=== PATIENT | female | born 1960 | race Caucasian/White ===

== ENCOUNTER → 2018-05-08 09:00 | Outpatient (CLI) | payer OTHER, SELFPAY | DX: Z23 Encounter for immunization (principal) | CPT/HCPCS: 90471; 90686 ==

== ENCOUNTER 2018-06-04 23:05 | Emergency (ER) | payer OTHER, SELFPAY ==
[2018-06-04 23:14] VITALS: BP 123/64; PULSE 70; RESP 18; TEMP 36.1; O2SAT 97; BMI 19.8
--- NOTE | 2018-06-04 23:30 | ED.LOWEXIN ---
HPI - Extremity Injury (Lower) General Chief Complaint: Extremity Injury, Lower Stated Complaint: thinks she broke her left ankle Time Seen by Provider: 06/04/18 23:25 Source: patient Mode of arrival: ambulatory Limitations: no limitations History of Present Illness HPI Narrative: Patient states she was walking on the steps when she stepped down wrong and rolled her left ankle. She states she felt a snap in the lateral portion of the ankle, and she has had increasing pain in the hours since this happened. Patient denies any other injuries at this time. She denies any prior injury to the ankle itself. She states she is otherwise healthy. No head injury. Patient states pain is 7/10. Related Data Previous Rx's Medication Instructions Recorded hydrocodone-acetaminophen 1 tab PO Q6H PRN #20 tab 06/05/18 Allergies Allergy/AdvReac Type Severity Reaction Status Date / Time No Known Drug Allergies Allergy Verified 06/04/18 23:19 Review of Systems Review of Systems All systems reviewed & are unremarkable except as noted in HPI and below Constitutional Denies chills, Denies fever(s), Denies lethargy and Denies weakness Eyes Denies change in vision, Denies eye discharge, Denies irritation and Denies loss of vision ENT Ears, Nose, Mouth, and Throat: Denies change in voice, Denies neck pain and Denies sore throat Cardiovascular Denies chest pain, Denies irregular heart rhythm, Denies lightheadedness, Denies palpitations, Denies dyspnea, Denies dyspnea on exertion and Denies orthopnea Respiratory Denies cough, Denies dyspnea, Denies dyspnea on exertion and Denies wheezing Gastrointestinal Gastrointestinal: Denies abdominal pain, Denies change in bowel habits, Denies diarrhea, Denies nausea and Denies vomiting Genitourinary Denies hematuria, Denies flank pain, Denies urinary incontinence and Denies urinary urgency Musculoskeletal Denies neck pain Comments: Left ankle pain Integumentary/Breasts Denies pruritus, Denies erythema, Denies rash and Denies wounds Neurologic Denies confusion, Denies loss of vision and Denies weakness Psychiatric Denies anxiety, Denies confusion, Denies depression, Denies homicidal ideation and Denies suicidal ideation Endocrine Denies palpitations Hematologic/Lymphatic Denies easy bruising Allergic/Immunologic Denies wheezing [facility] History History of third molar tooth extraction History of tonsillectomy Status post cholecystectomy Social History Smoking Status: Never smoker Exam Initial Vital Signs Initial Vital Signs: Vital Signs Temperature 97.0 F L 06/04/18 23:14 Pulse Rate 70 06/04/18 23:14 Respiratory Rate 18 06/04/18 23:14 Blood Pressure 123/64 06/04/18 23:14 Pulse Oximetry 97 06/04/18 23:14 Const General: cooperative and well developed Nutritional Appearance: well nourished Orientation: alert, awake, oriented x3 and not confused HENMT Head: normocephalic and atraumatic Ears: external ears normal and TM's normal bilaterally Nose: external nose normal and No nasal discharge Face and sinus: sinuses nontender, face symmetric, no sinus tenderness and No dry mucous membranes Mouth: oral mucosae normal and moist mucous membranes Teeth and gingiva: dentition normal Throat: tonsils normal and uvula midline Eyes General: appearance normal, both eyes and all related structures Eyelids: eyelids normal Conjunctivae: conjunctivae normal Sclera: sclerae normal Pupils: PERRL EOM: EOM intact bilaterally Neck Neck: normal visual inspection, trachea midline, No lymphadenopathy, No midline deformity and No JVD Lymphatic: No lymphedema Chest Chest: normal inspection of the chest Resp Effort & Inspection: normal respiratory effort, able to speak in complete sentences, no respiratory distress and no use of accessory muscles Cardio Pulses: normal peripheral pulses Back/Spine/Pelvis Back: No CVA tenderness Cervical Spine: cervical ROM normal and No pain with cervical ROM Thoracic/Lumbar Spine: thoracic and lumbar spine normal to inspection Skin General: no rashes or lesions noted, No jaundice and No petechiae Neuro General: alert, oriented x3, gait normal and no focal motor deficits Speech: speech normal Extrem General: full ROM, no pedal edema and no calf tenderness Left lower extremity: ankle ( patient has mild edema over her left lateral malleolus, as well as moderate tenderness over the distal left fibula and the soft tissues just inferior and anterior to the fibula.) Psych Appearance: well kempt Mental Status: mental status grossly normal Attitude: cooperative Thought Content: normal and suicidality Judgment: judgment good Course Course Narrative: Patient was sent for an x-ray series of her left ankle, which did show a small avulsion of the distal tip of the left fibula. I did relay the findings to the patient and advised patient that I would have her be nonweightbearing and using a splint until followed up by Orthopedics. Orders Ordered: ED Orders 06/04/18 23:35 XR ankle LT min 3V Stat Discontinued Medications Hydrocodone Bitart/Acetaminophen (Vicodin Prepack) 1 bottle MISC SEEINSTR ONE Stop: 06/05/18 00:18 Last Admin: 06/05/18 01:04 Dose: 1 bottle Vital Signs - 8 hr 06/04/18 23:14 06/05/18 01:18 Temperature 97.0 F L Pulse Rate 70 93 H Respiratory Rate 18 16 Blood Pressure 123/64 149/78 H Pulse Oximetry 97 97 MDM - Extremity Injury (Lower) Medical Records Attestation: I reviewed the patient's medical records. Imaging Data left ankle x-ray series: Attestation: I personally reviewed and interpreted this imaging study as follows: My impression: distal fibular avulsion fracture Radiologist's impression: Pending at the time this documentation. Discharge Plan Departure Patient Disposition: Home Clinical Impression: Ankle fracture Discharge Date/Time: 06/05/18 01:19 Interventions: ED Discharge Assessment Last Done: 06/05/18 01:18 Instructions: DI for Ankle Fracture Activity Restrictions/Additional Instructions: Your x-ray shows that the very bottom tip your fibula, the small outside bone of your lower leg, has broken off. The bone is in relatively good placement, and should heal without difficulty. However, since you do have a break, you will be referred to Orthopedics for follow-up, to be sure that the ankle is healing appropriately. Please keep the splint on and do not bear weight on the leg, and till you are cleared by Orthopedics. Prescriptions: New hydrocodone-acetaminophen 5-325 mg tablet 1 tab PO Q6H PRN (Reason: pain) Qty: 20 RF: 0 Referrals: Allen Medel MD [Physician] -
--- NOTE | 2018-06-04 23:35 | DI.RAD.S_ITS ---
PROCEDURE: XR ANKLE LT MIN 3V INDICATIONS: injury/pain left ankle TECHNIQUE: 3 views of the ankle were acquired. COMPARISON: None. FINDINGS: Bones: Mildly displaced fracture of the lateral malleolus is noted. Soft tissues: No tibiotalar joint effusion. Achilles tendon appears normal. IMPRESSION: Lateral malleolus fracture. Dictated by: Radhika Mejia MD, PhD on 06/05/2018 at 8:26 Approved by: Radhika Mejia MD, PhD on 06/05/2018 at 8:26
[2018-06-05] MEDS: HYDROCODONE/ACET 5/325 PREPACK 1 BOTTLE MISC (01:04)
[2018-06-05 01:18] VITALS: BP 149/78; PULSE 93; RESP 16; O2SAT 97
== END 2018-06-05 01:19 | disposition home or self-care (01) ==
PROVIDERS: Emergency Provider Emergency Medicine
DX: S82.892A Other fracture of left lower leg, initial encounter for closed fracture (principal); W18.43XA Slipping, tripping and stumbling without falling due to stepping from one level to another, initial encounter
CPT/HCPCS: 29515; 73610; 99283

== ENCOUNTER → 2018-07-25 08:30 | Outpatient (CLI) | payer OTHER, SELFPAY ==
[2018-07-25 10:14] LABS: Alanine Aminotransferase 51 IU/L (9-52); Albumin 4.8 g/dL (3.5-5.0); Albumin Globulin Ratio 1.7 (1.0-2.8); Alkaline Phosphatase 66 U/L (38-126); Aspartate Aminotransferase 39 IU/L (14-36); Bilirubin Total 1.7 mg/dL (0.2-1.3); Blood Urea Nitrogen 12 mg/dL (7-17); Calcium 10.3 mg/dL (8.4-10.2); Carbon Dioxide 31 mmol/L (22-32); Chloride 100 mmol/L (98-107); Estimated Glomerular Filt Rate > 60.0 mL/min (>60); Gamma Glutamyl Transpeptidase 35 U/L (12-43); Globulin 2.8 g/dL (1.7-4.1); Glucose 97 mg/dL (70-100); HEMOLYSIS < 15 (0-50); Potassium 4.2 mmol/L (3.4-5.1); Sodium 141 mmol/L (137-145); Total Protein 7.6 g/dL (6.3-8.2)
== END ==
PROVIDERS: Family Provider Family Medicine; PCP Family Medicine; Visit Provider Internal Medicine Gastroenterology
DX: R94.5 Abnormal results of liver function studies (principal)
CPT/HCPCS: 36415; 80053; 82977

== ENCOUNTER 2018-09-15 09:00 | Outpatient (RCR) | payer OTHER, SELFPAY ==
--- NOTE | 2018-08-02 15:16 | PT.OIE ---
Current Diagnoses Nondisplaced fracture of lateral malleolus of left fibula, subsequent encounter for closed fracture with routine healing (08/01/18) Past Surgical History (Last Reviewed 06/05/18 @ 06:01 by Besise Thrasher MD) History of third molar tooth extraction History of tonsillectomy Status post cholecystectomy Provider Visit Care Team Role Provider Type Alsya Olmedo DO Family Provider Physician Primary Care Provider Specialty: Family Practice Address: [address] [place] [address], [id number] Email: [email or web address] Attending Provider Physician Specialty: Orthopedic Surgery Address: [address] [place] [address], [phone] Fax: Email: Physical Therapy Initial Evaluation PT-OP-A Visit Information Start: 08/02/18 14:33 Freq: Status: Active Protocol: Document 08/01/18 09:35 [facility] (Rec: 08/02/18 15:15 [facility] [id number]) Out-Patient Physical Therapy Visit Information Visit Information Visit Type Initial Evaluation Visit Note 57 year old female who fractured her distal fibula on Jun 04 when she missed the last step going down a set of stairs. She is referred to PT to progress ankle ROM and strength Visit Start Time 09:45 Visit Stop Time 10:40 Total Visit Minutes 45 Visit Number 1 Evaluation Information Evaluation Date 08/01/18 PT-OP-B Current Condition Start: 08/02/18 14:33 Freq: Status: Active Protocol: Document 08/01/18 09:35 [facility] (Rec: 08/02/18 15:15 [facility] [id number]) Current Condition History of Current Condition Onset Date Jun 04 Current Complaints discomfort and swelling of the left ankle, not knowing what exercises to do History of Current Condition 57 year old female who fractured her distal fibula when she missed the last step going down a set of stairs on June 04. She was evaluated and placed in a walking boot until her last doctors visit on 07/03/18. At that time she was given a lace up ankle brace to wear for lateral stability. She has been doing ROM exercises since her last Dr. Visit and she notes this has helped. She is not sure what all she should be doing and seeks guidance to return to her normal level of activity. Nivia is a avid hiker and she would like to return to hiking when able. She does have a doctors appointment again this week and a additional x-ray will be taken at that time. Treatment Goals Patient/Caregiver Goals to return to hiking and walking Prior Functional Status Baseline Function- ADL's Independent Baseline Function- Mobility Independent PT-OP-C Subjective Start: 08/02/18 14:33 Freq: Status: Active Protocol: Document 08/01/18 09:35 [facility] (Rec: 08/02/18 15:15 [facility] [id number]) OP-PT Pain Assessment Pain Assessment Grid Paper Pain Assessment Grid Completed Yes Location left lateral ankle Intensity 4 Scale Used Numeric (1 - 10) Description Tender Tightness Frequency Daily Comments Pain Comments Nivia describes not having pain so much but instead a discomfort and swelling compared to her right side PT-OP-F Manual Assessment Start: 08/02/18 14:33 Freq: Status: Active Protocol: Document 08/01/18 09:35 [facility] (Rec: 08/02/18 15:15 [facility] [id number]) Manual Assessments Soft Tissue Assessment Soft Tissue Mobility Assessment tightness in the posterior calf musculature , plantar fascia tightness on the left Joint Mobility Assessment Joint Mobility Assessment decreased ankle joint ROM into DF, PF, Inversion, and eversion as compared to the right, decreased great toe extension on the left as compared to the right PT-OP-G Mobility & Gait Start: 08/02/18 14:33 Freq: Status: Active Protocol: Document 08/01/18 09:35 [facility] (Rec: 08/02/18 15:15 [facility] [id number]) OP Gait Assessment Gait Gait Assistance Required: Independent Gait Deviations General Gait Pattern Antalgic Decreased Stride Length Factors Limiting Gait Function Factors Limiting Gait Function Decreased Strength Pain Stair Climbing Evaluation Technique/Endurance Stair Climbing Direction Descend Stair Climbing Technique Step to Step PT-OP-J Posture/Palpation/Skin Start: 08/02/18 14:33 Freq: Status: Active Protocol: Document 08/01/18 09:35 [facility] (Rec: 08/02/18 15:15 [facility] [id number]) Palpation Assessment Location Two Palpation Location plantar fascia Palpation Findings Soft Tissue Tightness left lateral malleolus Palpation Location left lateral malleolus Palpation Findings Edema Tenderness Palpation Details tenderness to palpation over the left malleulus Skin Assessment Other Assessments Skin Assessment Comments decreased sensation over the left great toe as compared to the right. Nivia does note that initially she was keepingher walking boot really tight and at that time she noted some numbness in her left great toe. PT-OP-K Range of Motion Start: 08/02/18 14:33 Freq: Status: Active Protocol: Document 08/01/18 09:35 [facility] (Rec: 08/02/18 15:15 [facility] [id number]) Ankle and Foot Goniometric Range of Motion Ankle and Foot Measured in Degrees Right Ankle/Foot ROM WFL Yes Dorsiflexion with Knee Extended 10 Plantarflexion 35 Inversion 40 Eversion 15 Left Ankle/Foot ROM WFL No Testing Position Supine Dorsiflexion with Knee Extended 5 Plantarflexion 25 Inversion 20 Eversion 5 Ankle and Foot ROM Limitations ROM Limitations Pain Comments Nivia has a very large amount of inversion normally so even though her ROM looks like a good amount of inversion she is limited as compared to the left side PT-OP-M Strength Start: 08/02/18 14:33 Freq: Status: Active Protocol: Document 08/01/18 09:35 [facility] (Rec: 08/02/18 15:15 [facility] [id number]) Ankle/Foot Strength Ankle and Foot Manual Muscle Testing Left Dorsiflexion (L4) 3- Fair- Plantarflexion (S1) 2+ Poor+ Inversion 3 Fair Eversion (S1) 2+ Poor+ Reason Not Measured Pain PT-OP-Q Treatments Start: 08/02/18 14:33 Freq: Status: Active Protocol: Document 08/01/18 09:35 [facility] (Rec: 08/02/18 15:15 [facility] [id number]) Therapeutic Exercises Supine Exercises 2 Supine Exercise Name long sitting calf stretch Side left [address] Name [address] ankle with theraband Side left Resistance level 1 theraband Reps/Minutes 10 reps (pt given HEP to work up to 3 srts of 10 reps) Manual Therapy Treatment Soft Tissue Mobilization 1 Body Location left foot and ankle Mobilization Type Strumming Intensity/Depth Superficial Body Position Supine Comments gentle STM over the lateral ankle and the plantar fascia with ROM of the toes and gentle stretching PT-OP-R Modalities Start: 08/02/18 14:33 Freq: Status: Active Protocol: Document 08/01/18 09:35 [facility] (Rec: 08/02/18 15:15 [facility] [id number]) Hot Pack/Cold Pack Treatment Cold Pack Patient Position Hooklying Treatment Duration (minutes) 10 Patient Tolerance Good Comments cyrocuff with ankle elevated Other Unlisted Modality Treatment left lateral ankle Name of Modality laser tx Body Position Sitting Comments for chronic joint/bone increase local circulation setting PT-OP-T Assessment and Plan Start: 08/02/18 14:33 Freq: Status: Active Protocol: Document 08/01/18 09:35 [facility] (Rec: 08/02/18 15:15 [facility] [id number]) Physical Therapy Assessment Rehab Potential Rehabilitation Potential Excellent Evaluation Complexity Number of Personal Factors/Comorbidities 0 Number of Body Systems Impaired 1-2 Clinical Presentation at Evaluation Stable Impairments Impairments Activity Tolerance Balance Edema Gait Pain ROM Soft Tissue Mobility Strength Goals Five Impairment difficulty descending stairs, using step to step pattern Short Term Goal (STG) Nivia is able to descend stairs with a step over step pattern and without complaints of pain Four Impairment decreased balance left LE Short Term Goal (STG) improve weightbearing and balance of the left LE and Nivia is able to stand SLS for 10 seconds or greater on the left LE Three Impairment decreased weightbearing left LE with antalgic gait pattern Short Term Goal (STG) improve gait pattern for full weightbearing of the left LE without a visable limp and slowly progressing off the lateral ankle brace STG Duration 6 weeks One Impairment decreased left ankle strength Short Term Goal (STG) Nivia is instructed in a HEP for improving strength in the left ankle and she is tolerating strengthening without pain STG Duration 6 weeks Two Impairment Decreased left ankle ROM as compared to the right ankle Short Term Goal (STG) Improve left ankle ROM to WNL without pain STG Duration 6 weeks Assessment Summary Assessment Nivia presents to physical therapy today [facility] 2 months s/p left distal fibula fracture. She has progressed from the walking boot to the lace up ankle brace. She has started doing ankle ROM exercises since her last visit and this has helped but she is in need of further guidance as to her strengthening program. She has tenderness to palpation over the lateral malleolus and lacks ROM as compared with her right ankle. Her greatest difficulty is with ankle eversion. SHe is tight in her posterior calf and plantar fascia as compared to the right. She has decreased strength and ankle stability and will benefit from a gradual strengthening program as well as gait training and balance training. I did hold off on weightbearing assessment as she is head in for a x-ray to look at healing and we will wait for these results. Nivia may benefit from our aquatic therapy program as well to progress her weightbearing and gait. She tolerated todays treatment well and is a good candidate for PT. Physical Therapy Plan Frequency and Duration Frequency of Treatment 2x/Week Duration of Treatment 6 weeks Plan of Care Start Date 08/01/18 Plan of Care End Date 09/12/18 Therapeutic Interventions Therapeutic Interventions Aquatic Therapy Balance Training Gait Training Home Exercise Program Manual Therapy Self-Care/Home Management Soft Tissue Mobilization Taping Therapeutic Exercises Modalities Cold Pack/Ice Massage Electric Stimulation Next Visit Focus/Plan Next Note Type Treatment Note Next Visit Plan reassess ankle strengthening and calf stretch and progress ther ex and ROM as tolerated
--- NOTE | 2018-08-04 11:15 | PT.OTN ---
Current Diagnoses Nondisplaced fracture of lateral malleolus of left fibula, subsequent encounter for closed fracture with routine healing (08/04/18) Physical Therapy Treatment Note PT-OP-A Visit Information Start: 08/02/18 14:33 Freq: Status: Active Protocol: Document 08/04/18 10:30 DC[facility] (Rec: 08/04/18 11:14 DCW [id number]) Out-Patient Physical Therapy Visit Information Visit Information Visit Type Treatment Note Visit Start Time 10:30 Visit Stop Time 11:25 Total Visit Minutes 55 Visit Number 2 Evaluation Information Evaluation Date 08/01/18 PT-OP-B Current Condition Start: 08/02/18 14:33 Freq: Status: Active Protocol: Document 08/01/18 09:35 [facility] (Rec: 08/02/18 15:15 [facility] [id number]) Current Condition History of Current Condition Onset Date Jun 04 Current Complaints discomfort and swelling of the left ankle, not knowing what exercises to do History of Current Condition 57 year old female who fractured her distal fibula when she missed the last step going down a set of stairs on June 04. She was evaluated and placed in a walking boot until her last doctors visit on 07/03/18. At that time she was given a lace up ankle brace to wear for lateral stability. She has been doing ROM exercises since her last DrOlvin Visit and she notes this has helped. She is not sure what all she should be doing and seeks guidance to return to her normal level of activity. Nivia is a avid hiker and she would like to return to hiking when able. She does have a doctors appointment again this week and a additional x-ray will be taken at that time. Treatment Goals Patient/Caregiver Goals to return to hiking and walking Prior Functional Status Baseline Function- ADL's Independent Baseline Function- Mobility Independent PT-OP-C Subjective Start: 08/02/18 14:33 Freq: Status: Active Protocol: Document 08/04/18 10:30 DCW (Rec: 08/04/18 11:14 DCW [id number]) OP-PT Subjective Patient Comments Patient Comments Pt reports that at her follow- up appointment Tuesday, she was released from care at [facility], and reports she was told her Fx is healing well, but mmay never truly fully heal due to the location of the fracture. PT-OP-F Manual Assessment Start: 08/02/18 14:33 Freq: Status: Active Protocol: Document 08/01/18 09:35 [facility] (Rec: 08/02/18 15:15 [facility] [id number]) Manual Assessments Soft Tissue Assessment Soft Tissue Mobility Assessment tightness in the posterior calf musculature , plantar fascia tightness on the left Joint Mobility Assessment Joint Mobility Assessment decreased ankle joint ROM into DF, PF, Inversion, and eversion as compared to the right, decreased great toe extension on the left as compared to the right PT-OP-G Mobility & Gait Start: 08/02/18 14:33 Freq: Status: Active Protocol: Document 08/01/18 09:35 [facility] (Rec: 08/02/18 15:15 [facility] [id number]) OP Gait Assessment Gait Gait Assistance Required: Independent Gait Deviations General Gait Pattern Antalgic Decreased Stride Length Factors Limiting Gait Function Factors Limiting Gait Function Decreased Strength Pain Stair Climbing Evaluation Technique/Endurance Stair Climbing Direction Descend Stair Climbing Technique Step to Step PT-OP-J Posture/Palpation/Skin Start: 08/02/18 14:33 Freq: Status: Active Protocol: Document 08/01/18 09:35 [facility] (Rec: 08/02/18 15:15 [facility] [id number]) Palpation Assessment Location Two Palpation Location plantar fascia Palpation Findings Soft Tissue Tightness left lateral malleolus Palpation Location left lateral malleolus Palpation Findings Edema Tenderness Palpation Details tenderness to palpation over the left malleulus Skin Assessment Other Assessments Skin Assessment Comments decreased sensation over the left great toe as compared to the right. Nivia does note that initially she was keepingher walking boot really tight and at that time she noted some numbness in her left great toe. PT-OP-K Range of Motion Start: 08/02/18 14:33 Freq: Status: Active Protocol: Document 08/01/18 09:35 [facility] (Rec: 08/02/18 15:15 [facility] [id number]) Ankle and Foot Goniometric Range of Motion Ankle and Foot Measured in Degrees Right Ankle/Foot ROM WFL Yes Dorsiflexion with Knee Extended 10 Plantarflexion 35 Inversion 40 Eversion 15 Left Ankle/Foot ROM WFL No Testing Position Supine Dorsiflexion with Knee Extended 5 Plantarflexion 25 Inversion 20 Eversion 5 Ankle and Foot ROM Limitations ROM Limitations Pain Comments Nivia has a very large amount of inversion normally so even though her ROM looks like a good amount of inversion she is limited as compared to the left side PT-OP-M Strength Start: 08/02/18 14:33 Freq: Status: Active Protocol: Document 08/01/18 09:35 [facility] (Rec: 08/02/18 15:15 [facility] [id number]) Ankle/Foot Strength Ankle and Foot Manual Muscle Testing Left Dorsiflexion (L4) 3- Fair- Plantarflexion (S1) 2+ Poor+ Inversion 3 Fair Eversion (S1) 2+ Poor+ Reason Not Measured Pain PT-OP-Q Treatments Start: 08/02/18 14:33 Freq: Status: Active Protocol: Document 08/04/18 10:30 DC[facility] (Rec: 08/04/18 11:14 DCW [id number]) Therapeutic Exercises Sitting Exercises Intrinsic [place] Pick-up Sitting Exercise Name [place] Pick-up Side left BAPS Sitting Exercise Name PF/DF, Inv/Ev, CW/CCW Equipment Used BAPS Lv 3 4-Way ankle flexion Sitting Exercise Name 4-Way ankle flexion Side left Resistance Lv 1 Equipment Used T-band Standing Exercises Active Plantar Flexion Standing Exercise Name PF on PADMAJA Calf Stretch Standing Exercise Name PADMAJA Eccentric Heel Raises Standing Exercise Name Eccentric Heel Raises Side left Comments stopped secondary to pain Manual Therapy Treatment Joint Mobilizations Talocrural Joint Joint Talocrural Joint Mobilizations Direction A->P increase DF PT-OP-R Modalities Start: 08/02/18 14:33 Freq: Status: Active Protocol: Document 08/04/18 10:30 [facility] (Rec: 08/04/18 11:14 DCW [id number]) Electric Stimulation Electric Stimulation Interferential Current (IFC) Body Location L ankle Duration (Minutes) 15 Patient Position Hooklying Comments /c Cryocuff PT-OP-T Assessment and Plan Start: 08/02/18 14:33 Freq: Status: Active Protocol: Document 08/04/18 10:30 [facility] (Rec: 08/04/18 11:14 [facility] [id number]) Physical Therapy Assessment Impairments Impairments Activity Tolerance Balance Edema Gait Pain ROM Soft Tissue Mobility Strength Goals Five Impairment difficulty descending stairs, using step to step pattern Short Term Goal (STG) Nivia is able to descend stairs with a step over step pattern and without complaints of pain Four Impairment decreased balance left LE Short Term Goal (STG) improve weightbearing and balance of the left LE and Nivia is able to stand SLS for 10 seconds or greater on the left LE Three Impairment decreased weightbearing left LE with antalgic gait pattern Short Term Goal (STG) improve gait pattern for full weightbearing of the left LE without a visable limp and slowly progressing off the lateral ankle brace STG Duration 6 weeks One Impairment decreased left ankle strength Short Term Goal (STG) Nivia is instructed in a HEP for improving strength in the left ankle and she is tolerating strengthening without pain STG Duration 6 weeks Two Impairment Decreased left ankle ROM as compared to the right ankle Short Term Goal (STG) Improve left ankle ROM to WNL without pain STG Duration 6 weeks Assessment Summary Assessment Pt experienced increased pain with eccentric heel raises, heel cord stretching, and descending stairs. Will work on decreasing intensity of TherEx until pt is better able to tolerate treatment. Physical Therapy Plan Frequency and Duration Frequency of Treatment 2x/Week Duration of Treatment 6 weeks Plan of Care Start Date 08/01/18 Plan of Care End Date 09/12/18 Therapeutic Interventions Therapeutic Interventions Aquatic Therapy Balance Training Gait Training Home Exercise Program Manual Therapy Self-Care/Home Management Soft Tissue Mobilization Taping Therapeutic Exercises Modalities Cold Pack/Ice Massage Electric Stimulation Next Visit Focus/Plan Next Note Type Treatment Note Next Visit Plan reassess ankle strengthening and calf stretch and progress ther ex and ROM as tolerated
--- NOTE | 2018-08-07 10:30 | PT.OTN ---
Current Diagnoses Nondisplaced fracture of lateral malleolus of left fibula, subsequent encounter for closed fracture with routine healing (08/07/18) Physical Therapy Treatment Note PT-OP-A Visit Information Start: 08/02/18 14:33 Freq: Status: Active Protocol: Document 08/07/18 09:45 DC[facility] (Rec: 08/07/18 10:29 DCW [id number]) Out-Patient Physical Therapy Visit Information Visit Information Visit Type Treatment Note Visit Start Time 09:45 Visit Stop Time 10:30 Total Visit Minutes 55 Visit Number 3 Evaluation Information Evaluation Date 08/01/18 PT-OP-B Current Condition Start: 08/02/18 14:33 Freq: Status: Active Protocol: Document 08/01/18 09:35 [facility] (Rec: 08/02/18 15:15 [facility] [id number]) Current Condition History of Current Condition Onset Date Jun 04 Current Complaints discomfort and swelling of the left ankle, not knowing what exercises to do History of Current Condition 57 year old female who fractured her distal fibula when she missed the last step going down a set of stairs on June 04. She was evaluated and placed in a walking boot until her last doctors visit on 07/03/18. At that time she was given a lace up ankle brace to wear for lateral stability. She has been doing ROM exercises since her last Dr. Visit and she notes this has helped. She is not sure what all she should be doing and seeks guidance to return to her normal level of activity. Nivia is a avid hiker and she would like to return to hiking when able. She does have a doctors appointment again this week and a additional x-ray will be taken at that time. Treatment Goals Patient/Caregiver Goals to return to hiking and walking Prior Functional Status Baseline Function- ADL's Independent Baseline Function- Mobility Independent PT-OP-C Subjective Start: 08/02/18 14:33 Freq: Status: Active Protocol: Document 08/07/18 09:45 DCW (Rec: 08/07/18 10:29 DCW [id number]) OP-PT Subjective Patient Comments Patient Comments Pt admits she was a little sore following her last appointment, but that's good, I'm coming in to work it. Pt also notes that she went all day yesterday without her ankle brace, but wore it today due to weather conditions outside. PT-OP-F Manual Assessment Start: 08/02/18 14:33 Freq: Status: Active Protocol: Document 08/01/18 09:35 [facility] (Rec: 08/02/18 15:15 [facility] [id number]) Manual Assessments Soft Tissue Assessment Soft Tissue Mobility Assessment tightness in the posterior calf musculature , plantar fascia tightness on the left Joint Mobility Assessment Joint Mobility Assessment decreased ankle joint ROM into DF, PF, Inversion, and eversion as compared to the right, decreased great toe extension on the left as compared to the right PT-OP-G Mobility & Gait Start: 08/02/18 14:33 Freq: Status: Active Protocol: Document 08/01/18 09:35 [facility] (Rec: 08/02/18 15:15 [facility] [id number]) OP Gait Assessment Gait Gait Assistance Required: Independent Gait Deviations General Gait Pattern Antalgic Decreased Stride Length Factors Limiting Gait Function Factors Limiting Gait Function Decreased Strength Pain Stair Climbing Evaluation Technique/Endurance Stair Climbing Direction Descend Stair Climbing Technique Step to Step PT-OP-J Posture/Palpation/Skin Start: 08/02/18 14:33 Freq: Status: Active Protocol: Document 08/01/18 09:35 [facility] (Rec: 08/02/18 15:15 [facility] [id number]) Palpation Assessment Location Two Palpation Location plantar fascia Palpation Findings Soft Tissue Tightness left lateral malleolus Palpation Location left lateral malleolus Palpation Findings Edema Tenderness Palpation Details tenderness to palpation over the left malleulus Skin Assessment Other Assessments Skin Assessment Comments decreased sensation over the left great toe as compared to the right. Nivia does note that initially she was keepingher walking boot really tight and at that time she noted some numbness in her left great toe. PT-OP-K Range of Motion Start: 08/02/18 14:33 Freq: Status: Active Protocol: Document 08/01/18 09:35 [facility] (Rec: 08/02/18 15:15 [facility] [id number]) Ankle and Foot Goniometric Range of Motion Ankle and Foot Measured in Degrees Right Ankle/Foot ROM WFL Yes Dorsiflexion with Knee Extended 10 Plantarflexion 35 Inversion 40 Eversion 15 Left Ankle/Foot ROM WFL No Testing Position Supine Dorsiflexion with Knee Extended 5 Plantarflexion 25 Inversion 20 Eversion 5 Ankle and Foot ROM Limitations ROM Limitations Pain Comments Nivia has a very large amount of inversion normally so even though her ROM looks like a good amount of inversion she is limited as compared to the left side PT-OP-M Strength Start: 08/02/18 14:33 Freq: Status: Active Protocol: Document 08/01/18 09:35 [facility] (Rec: 08/02/18 15:15 [facility] [id number]) Ankle/Foot Strength Ankle and Foot Manual Muscle Testing Left Dorsiflexion (L4) 3- Fair- Plantarflexion (S1) 2+ Poor+ Inversion 3 Fair Eversion (S1) 2+ Poor+ Reason Not Measured Pain PT-OP-Q Treatments Start: 08/02/18 14:33 Freq: Status: Active Protocol: Document 08/07/18 09:45 [facility] (Rec: 08/07/18 10:29 DC[facility] [id number]) Cardio Equipment Recumbent Bicycle Duration (Minutes) 5 Resistance 4 Seat Position 1 + back rest Gym Equipment Shuttle Recovery Unilateral Heel Raises Resistance 12# Unilateral Squats Resistance 37# Shuttle Recovery Platform Stable Bilateral Squats Resistance 62# Shuttle Recovery Platform Unstable Therapeutic Exercises Sitting Exercises BAPS Sitting Exercise Name PF/DF, Inv/Ev, CW/CCW Equipment Used BAPS Lv 3 Comments switched to standing Standing Exercises Step-downs Standing Exercise Name Step-downs Equipment Used 2 and 4 step Comments Left stays on step Active Plantar Flexion Standing Exercise Name PF on PADMAJA Calf Stretch Standing Exercise Name PADMAJA Manual Therapy Treatment Joint Mobilizations Talocrural Joint Joint Talocrural Joint Mobilizations Direction A->P increase DF PT-OP-R Modalities Start: 08/02/18 14:33 Freq: Status: Active Protocol: Document 08/07/18 09:45 [facility] (Rec: 08/07/18 10:29 DCW [id number]) Electric Stimulation Electric Stimulation Interferential Current (IFC) Body Location L ankle Duration (Minutes) 15 Patient Position Hooklying Comments /c Cryocuff PT-OP-T Assessment and Plan Start: 08/02/18 14:33 Freq: Status: Active Protocol: Document 08/07/18 09:45 [facility] (Rec: 08/07/18 10:29 DCW [id number]) Physical Therapy Assessment Impairments Impairments Activity Tolerance Balance Edema Gait Pain ROM Soft Tissue Mobility Strength Goals Five Impairment difficulty descending stairs, using step to step pattern Short Term Goal (STG) Nivia is able to descend stairs with a step over step pattern and without complaints of pain Four Impairment decreased balance left LE Short Term Goal (STG) improve weightbearing and balance of the left LE and Nivia is able to stand SLS for 10 seconds or greater on the left LE Three Impairment decreased weightbearing left LE with antalgic gait pattern Short Term Goal (STG) improve gait pattern for full weightbearing of the left LE without a visable limp and slowly progressing off the lateral ankle brace STG Duration 6 weeks One Impairment decreased left ankle strength Short Term Goal (STG) Nivia is instructed in a HEP for improving strength in the left ankle and she is tolerating strengthening without pain STG Duration 6 weeks Two Impairment Decreased left ankle ROM as compared to the right ankle Short Term Goal (STG) Improve left ankle ROM to WNL without pain STG Duration 6 weeks Assessment Summary Assessment Pt tolerated treatment today with fewer complaints of pain and difficulty. Pt compliant with current HEP. Physical Therapy Plan Frequency and Duration Frequency of Treatment 2x/Week Duration of Treatment 6 weeks Plan of Care Start Date 08/01/18 Plan of Care End Date 09/12/18 Therapeutic Interventions Therapeutic Interventions Aquatic Therapy Balance Training Gait Training Home Exercise Program Manual Therapy Self-Care/Home Management Soft Tissue Mobilization Taping Therapeutic Exercises Modalities Cold Pack/Ice Massage Electric Stimulation Next Visit Focus/Plan Next Note Type Treatment Note Next Visit Plan Progress TherEx and ROM as tolerated
--- NOTE | 2018-08-11 09:52 | PT.OTN ---
Current Diagnoses Nondisplaced fracture of lateral malleolus of left fibula, subsequent encounter for closed fracture with routine healing (08/11/18) Physical Therapy Treatment Note PT-OP-A Visit Information Start: 08/02/18 14:33 Freq: Status: Active Protocol: Document 08/11/18 09:00 DCW (Rec: 08/11/18 09:52 DCW [id number]) Out-Patient Physical Therapy Visit Information Visit Information Visit Type Treatment Note Visit Start Time 09:00 Visit Stop Time 09:55 Total Visit Minutes 55 Visit Number 4 Evaluation Information Evaluation Date 08/01/18 PT-OP-B Current Condition Start: 08/02/18 14:33 Freq: Status: Active Protocol: Document 08/01/18 09:35 [facility] (Rec: 08/02/18 15:15 [facility] [id number]) Current Condition History of Current Condition Onset Date Jun 04 Current Complaints discomfort and swelling of the left ankle, not knowing what exercises to do History of Current Condition 57 year old female who fractured her distal fibula when she missed the last step going down a set of stairs on June 04. She was evaluated and placed in a walking boot until her last doctors visit on 07/03/18. At that time she was given a lace up ankle brace to wear for lateral stability. She has been doing ROM exercises since her last DrOlvin Visit and she notes this has helped. She is not sure what all she should be doing and seeks guidance to return to her normal level of activity. Nivia is a avid hiker and she would like to return to hiking when able. She does have a doctors appointment again this week and a additional x-ray will be taken at that time. Treatment Goals Patient/Caregiver Goals to return to hiking and walking Prior Functional Status Baseline Function- ADL's Independent Baseline Function- Mobility Independent PT-OP-C Subjective Start: 08/02/18 14:33 Freq: Status: Active Protocol: Document 08/11/18 09:00 DCW (Rec: 08/11/18 09:52 DCW [id number]) OP-PT Subjective Patient Comments Patient Comments Pt reports that her ankle has been angry all week, but I think that's a good thing. PT-OP-F Manual Assessment Start: 08/02/18 14:33 Freq: Status: Active Protocol: Document 08/01/18 09:35 [facility] (Rec: 08/02/18 15:15 [facility] [id number]) Manual Assessments Soft Tissue Assessment Soft Tissue Mobility Assessment tightness in the posterior calf musculature , plantar fascia tightness on the left Joint Mobility Assessment Joint Mobility Assessment decreased ankle joint ROM into DF, PF, Inversion, and eversion as compared to the right, decreased great toe extension on the left as compared to the right PT-OP-G Mobility & Gait Start: 08/02/18 14:33 Freq: Status: Active Protocol: Document 08/01/18 09:35 [facility] (Rec: 08/02/18 15:15 [facility] [id number]) OP Gait Assessment Gait Gait Assistance Required: Independent Gait Deviations General Gait Pattern Antalgic Decreased Stride Length Factors Limiting Gait Function Factors Limiting Gait Function Decreased Strength Pain Stair Climbing Evaluation Technique/Endurance Stair Climbing Direction Descend Stair Climbing Technique Step to Step PT-OP-J Posture/Palpation/Skin Start: 08/02/18 14:33 Freq: Status: Active Protocol: Document 08/01/18 09:35 [facility] (Rec: 08/02/18 15:15 [facility] [id number]) Palpation Assessment Location Two Palpation Location plantar fascia Palpation Findings Soft Tissue Tightness left lateral malleolus Palpation Location left lateral malleolus Palpation Findings Edema Tenderness Palpation Details tenderness to palpation over the left malleulus Skin Assessment Other Assessments Skin Assessment Comments decreased sensation over the left great toe as compared to the right. Nivia does note that initially she was keepingher walking boot really tight and at that time she noted some numbness in her left great toe. PT-OP-K Range of Motion Start: 08/02/18 14:33 Freq: Status: Active Protocol: Document 08/01/18 09:35 [facility] (Rec: 08/02/18 15:15 [facility] [id number]) Ankle and Foot Goniometric Range of Motion Ankle and Foot Measured in Degrees Right Ankle/Foot ROM WFL Yes Dorsiflexion with Knee Extended 10 Plantarflexion 35 Inversion 40 Eversion 15 Left Ankle/Foot ROM WFL No Testing Position Supine Dorsiflexion with Knee Extended 5 Plantarflexion 25 Inversion 20 Eversion 5 Ankle and Foot ROM Limitations ROM Limitations Pain Comments Nivia has a very large amount of inversion normally so even though her ROM looks like a good amount of inversion she is limited as compared to the left side PT-OP-M Strength Start: 08/02/18 14:33 Freq: Status: Active Protocol: Document 08/01/18 09:35 [facility] (Rec: 08/02/18 15:15 [facility] [id number]) Ankle/Foot Strength Ankle and Foot Manual Muscle Testing Left Dorsiflexion (L4) 3- Fair- Plantarflexion (S1) 2+ Poor+ Inversion 3 Fair Eversion (S1) 2+ Poor+ Reason Not Measured Pain PT-OP-Q Treatments Start: 08/02/18 14:33 Freq: Status: Active Protocol: Document 08/11/18 09:00 DCW (Rec: 08/11/18 09:52 DCW [id number]) Cardio Equipment Recumbent Bicycle Duration (Minutes) 5 Resistance 4 Seat Position 1 + back rest Gym Equipment Shuttle Recovery Unilateral Heel Raises Resistance 12# Unilateral Squats Resistance 37# Shuttle Recovery Platform Stable Bilateral Squats Resistance 62# Shuttle Recovery Platform Unstable Therapeutic Exercises Sitting Exercises BAPS Sitting Exercise Name PF/DF, Inv/Ev, CW/CCW Equipment Used BAPS Lv 3 Comments switched to standing Standing Exercises Mini Lunge Standing Exercise Name Mini Lunge onto BOSU Side left Ankle Stratigies Standing Exercise Name DL Stance and Staggered Stance on foam Equipment Used Jovel foam, Blue Foam Comments EO/EC Step-downs Standing Exercise Name Step-downs Equipment Used 2 and 4 step Comments Left stays on step Active Plantar Flexion Standing Exercise Name PF on PADMAJA Calf Stretch Standing Exercise Name PADMAJA PT-OP-R Modalities Start: 08/02/18 14:33 Freq: Status: Active Protocol: Document 08/11/18 09:00 DCW (Rec: 08/11/18 09:52 DCW [id number]) Electric Stimulation Electric Stimulation Interferential Current (IFC) Body Location L ankle Duration (Minutes) 15 Patient Position Hooklying Comments /c Cryocuff PT-OP-T Assessment and Plan Start: 08/02/18 14:33 Freq: Status: Active Protocol: Document 08/11/18 09:00 DCW (Rec: 08/11/18 09:52 DCW [id number]) Physical Therapy Assessment Impairments Impairments Activity Tolerance Balance Edema Gait Pain ROM Soft Tissue Mobility Strength Goals Five Impairment difficulty descending stairs, using step to step pattern Short Term Goal (STG) Nivia is able to descend stairs with a step over step pattern and without complaints of pain Four Impairment decreased balance left LE Short Term Goal (STG) improve weightbearing and balance of the left LE and Nivia is able to stand SLS for 10 seconds or greater on the left LE Three Impairment decreased weightbearing left LE with antalgic gait pattern Short Term Goal (STG) improve gait pattern for full weightbearing of the left LE without a visable limp and slowly progressing off the lateral ankle brace STG Duration 6 weeks One Impairment decreased left ankle strength Short Term Goal (STG) Nivia is instructed in a HEP for improving strength in the left ankle and she is tolerating strengthening without pain STG Duration 6 weeks Two Impairment Decreased left ankle ROM as compared to the right ankle Short Term Goal (STG) Improve left ankle ROM to WNL without pain STG Duration 6 weeks Assessment Summary Assessment Pt did not have alena complaints of pain or difficulty, improving ROM and functional activity, continues to wear brace outside due to recent snow weather. Physical Therapy Plan Frequency and Duration Frequency of Treatment 2x/Week Duration of Treatment 6 weeks Plan of Care Start Date 08/01/18 Plan of Care End Date 09/12/18 Therapeutic Interventions Therapeutic Interventions Aquatic Therapy Balance Training Gait Training Home Exercise Program Manual Therapy Self-Care/Home Management Soft Tissue Mobilization Taping Therapeutic Exercises Modalities Cold Pack/Ice Massage Electric Stimulation Next Visit Focus/Plan Next Note Type Treatment Note Next Visit Plan Progress TherEx and ROM as tolerated
--- NOTE | 2018-08-15 16:34 | PT.OTN ---
Current Diagnoses Nondisplaced fracture of lateral malleolus of left fibula, subsequent encounter for closed fracture with routine healing (08/15/18) Physical Therapy Treatment Note PT-OP-A Visit Information Start: 08/02/18 14:33 Freq: Status: Active Protocol: Document 08/15/18 16:25 [facility] (Rec: 08/15/18 16:33 [facility] [id number]) Out-Patient Physical Therapy Visit Information Visit Information Visit Type Treatment Note Visit Start Time 09:45 Visit Stop Time 10:40 Total Visit Minutes 55 Visit Number 5 Evaluation Information Evaluation Date 08/01/18 PT-OP-B Current Condition Start: 08/02/18 14:33 Freq: Status: Active Protocol: Document 08/01/18 09:35 [facility] (Rec: 08/02/18 15:15 [facility] [id number]) Current Condition History of Current Condition Onset Date Jun 04 Current Complaints discomfort and swelling of the left ankle, not knowing what exercises to do History of Current Condition 57 year old female who fractured her distal fibula when she missed the last step going down a set of stairs on June 04. She was evaluated and placed in a walking boot until her last doctors visit on 07/03/18. At that time she was given a lace up ankle brace to wear for lateral stability. She has been doing ROM exercises since her last DrOlvin Visit and she notes this has helped. She is not sure what all she should be doing and seeks guidance to return to her normal level of activity. Nivia is a avid hiker and she would like to return to hiking when able. She does have a doctors appointment again this week and a additional x-ray will be taken at that time. Treatment Goals Patient/Caregiver Goals to return to hiking and walking Prior Functional Status Baseline Function- ADL's Independent Baseline Function- Mobility Independent PT-OP-C Subjective Start: 08/02/18 14:33 Freq: Status: Active Protocol: Document 08/15/18 16:25 [facility] (Rec: 08/15/18 16:33 [facility] [id number]) OP-PT Subjective Patient Comments Patient Comments Nivia reports she has been doing all her exercises but her ankle is in more pain. It hurts to lay on her left side in bed and it is waking her up at night PT-OP-F Manual Assessment Start: 08/02/18 14:33 Freq: Status: Active Protocol: Document 08/01/18 09:35 [facility] (Rec: 08/02/18 15:15 [facility] [id number]) Manual Assessments Soft Tissue Assessment Soft Tissue Mobility Assessment tightness in the posterior calf musculature , plantar fascia tightness on the left Joint Mobility Assessment Joint Mobility Assessment decreased ankle joint ROM into DF, PF, Inversion, and eversion as compared to the right, decreased great toe extension on the left as compared to the right PT-OP-G Mobility & Gait Start: 08/02/18 14:33 Freq: Status: Active Protocol: Document 08/01/18 09:35 [facility] (Rec: 08/02/18 15:15 [facility] [id number]) OP Gait Assessment Gait Gait Assistance Required: Independent Gait Deviations General Gait Pattern Antalgic Decreased Stride Length Factors Limiting Gait Function Factors Limiting Gait Function Decreased Strength Pain Stair Climbing Evaluation Technique/Endurance Stair Climbing Direction Descend Stair Climbing Technique Step to Step PT-OP-J Posture/Palpation/Skin Start: 08/02/18 14:33 Freq: Status: Active Protocol: Document 08/01/18 09:35 [facility] (Rec: 08/02/18 15:15 [facility] [id number]) Palpation Assessment Location Two Palpation Location plantar fascia Palpation Findings Soft Tissue Tightness left lateral malleolus Palpation Location left lateral malleolus Palpation Findings Edema Tenderness Palpation Details tenderness to palpation over the left malleulus Skin Assessment Other Assessments Skin Assessment Comments decreased sensation over the left great toe as compared to the right. Nivia does note that initially she was keepingher walking boot really tight and at that time she noted some numbness in her left great toe. PT-OP-K Range of Motion Start: 08/02/18 14:33 Freq: Status: Active Protocol: Document 08/01/18 09:35 [facility] (Rec: 08/02/18 15:15 [facility] [id number]) Ankle and Foot Goniometric Range of Motion Ankle and Foot Measured in Degrees Right Ankle/Foot ROM WFL Yes Dorsiflexion with Knee Extended 10 Plantarflexion 35 Inversion 40 Eversion 15 Left Ankle/Foot ROM WFL No Testing Position Supine Dorsiflexion with Knee Extended 5 Plantarflexion 25 Inversion 20 Eversion 5 Ankle and Foot ROM Limitations ROM Limitations Pain Comments Nivia has a very large amount of inversion normally so even though her ROM looks like a good amount of inversion she is limited as compared to the left side PT-OP-M Strength Start: 08/02/18 14:33 Freq: Status: Active Protocol: Document 08/01/18 09:35 [facility] (Rec: 08/02/18 15:15 [facility] [id number]) Ankle/Foot Strength Ankle and Foot Manual Muscle Testing Left Dorsiflexion (L4) 3- Fair- Plantarflexion (S1) 2+ Poor+ Inversion 3 Fair Eversion (S1) 2+ Poor+ Reason Not Measured Pain PT-OP-Q Treatments Start: 08/02/18 14:33 Freq: Status: Active Protocol: Document 08/15/18 16:25 [facility] (Rec: 08/15/18 16:33 [facility] [email or web address]) Cardio Equipment Bicycle (Upright) Duration (Minutes) 6 Resistance 1 Gym Equipment Shuttle Recovery Unilateral Squats Resistance 25# Bilateral Squats Resistance 50# Shuttle Recovery Platform Stable Therapeutic Exercises Sitting Exercises BAPS Sitting Exercise Name PF/DF, Inv/Ev, CW/CCW Equipment Used BAPS Lv 3 Comments switched to standing 4-Way ankle flexion Sitting Exercise Name 4-Way ankle flexion Side left Resistance Lv 1 Equipment Used T-band Standing Exercises 1 Standing Exercise Name standing rocking onto left foot and stepping forward with right Comments for improved DF left and stance phase of gait Active Plantar Flexion Standing Exercise Name PF on PADMAJA Calf Stretch Standing Exercise Name PADMAJA Manual Therapy Treatment Soft Tissue Mobilization 1 Body Location left foot and ankle Mobilization Type Strumming Intensity/Depth Superficial Body Position Supine Comments gentle STM over the lateral ankle and the plantar fascia with ROM of the toes and gentle stretching Joint Mobilizations Talocrural Joint Joint Talocrural Joint Mobilizations Direction A->P increase DF PT-OP-R Modalities Start: 08/02/18 14:33 Freq: Status: Active Protocol: Document 08/15/18 16:25 [facility] (Rec: 08/15/18 16:33 [facility] [id number]) Electric Stimulation Electric Stimulation Interferential Current (IFC) Body Location L ankle Duration (Minutes) 15 Patient Position Hooklying Comments /c Cryocuff Hot Pack/Cold Pack Treatment Cold Pack Patient Position Hooklying Treatment Duration (minutes) 10 Patient Tolerance Good Comments cyrocuff with ankle elevated Other Unlisted Modality Treatment left lateral ankle Name of Modality laser tx Body Position Sitting Comments for chronic joint/bone increase local circulation setting PT-OP-T Assessment and Plan Start: 08/02/18 14:33 Freq: Status: Active Protocol: Document 08/15/18 16:25 [facility] (Rec: 08/15/18 16:33 [facility] [id number]) Physical Therapy Assessment Assessment Summary Assessment improving ROM of the left ankle and strength, increased pain though. I backed off on some of the weightbearing exercises today due to pain. Nivia responded well to gentle talocrural joint mobilizations and had decreased PF pain following Physical Therapy Plan Frequency and Duration Frequency of Treatment 2x/Week Duration of Treatment 6 weeks Plan of Care Start Date 08/01/18 Plan of Care End Date 09/12/18 Therapeutic Interventions Therapeutic Interventions Aquatic Therapy Balance Training Gait Training Home Exercise Program Manual Therapy Self-Care/Home Management Soft Tissue Mobilization Taping Therapeutic Exercises Modalities Cold Pack/Ice Massage Electric Stimulation Next Visit Focus/Plan Next Note Type Treatment Note Next Visit Plan Progress TherEx and ROM as tolerated, reassess pain levels next visit
--- NOTE | 2018-08-18 09:45 | PT.OTN ---
Current Diagnoses Nondisplaced fracture of lateral malleolus of left fibula, subsequent encounter for closed fracture with routine healing (08/18/18) Physical Therapy Treatment Note PT-OP-A Visit Information Start: 08/02/18 14:33 Freq: Status: Active Protocol: Document 08/18/18 09:00 DCW (Rec: 08/18/18 09:45 DCW [id number]) Out-Patient Physical Therapy Visit Information Visit Information Visit Type Treatment Note Visit Start Time 09:00 Visit Stop Time 09:55 Total Visit Minutes 55 Visit Number 6 Evaluation Information Evaluation Date 08/01/18 PT-OP-B Current Condition Start: 08/02/18 14:33 Freq: Status: Active Protocol: Document 08/01/18 09:35 [facility] (Rec: 08/02/18 15:15 [facility] [id number]) Current Condition History of Current Condition Onset Date Jun 04 Current Complaints discomfort and swelling of the left ankle, not knowing what exercises to do History of Current Condition 57 year old female who fractured her distal fibula when she missed the last step going down a set of stairs on June 04. She was evaluated and placed in a walking boot until her last doctors visit on 07/03/18. At that time she was given a lace up ankle brace to wear for lateral stability. She has been doing ROM exercises since her last DrOlvin Visit and she notes this has helped. She is not sure what all she should be doing and seeks guidance to return to her normal level of activity. Nivia is a avid hiker and she would like to return to hiking when able. She does have a doctors appointment again this week and a additional x-ray will be taken at that time. Treatment Goals Patient/Caregiver Goals to return to hiking and walking Prior Functional Status Baseline Function- ADL's Independent Baseline Function- Mobility Independent PT-OP-C Subjective Start: 08/02/18 14:33 Freq: Status: Active Protocol: Document 08/18/18 09:00 DCW (Rec: 08/18/18 09:45 DCW [id number]) OP-PT Subjective Patient Comments Patient Comments It feels like my ankle is getting tighter, not looser. Pt notes that she has not worn her brace all week, except for when she cleans. Feels like it is getting stronger, but admits she still struggles with uneven surfaces . PT-OP-F Manual Assessment Start: 08/02/18 14:33 Freq: Status: Active Protocol: Document 08/01/18 09:35 [facility] (Rec: 08/02/18 15:15 [facility] [id number]) Manual Assessments Soft Tissue Assessment Soft Tissue Mobility Assessment tightness in the posterior calf musculature , plantar fascia tightness on the left Joint Mobility Assessment Joint Mobility Assessment decreased ankle joint ROM into DF, PF, Inversion, and eversion as compared to the right, decreased great toe extension on the left as compared to the right PT-OP-G Mobility & Gait Start: 08/02/18 14:33 Freq: Status: Active Protocol: Document 08/01/18 09:35 [facility] (Rec: 08/02/18 15:15 [facility] [id number]) OP Gait Assessment Gait Gait Assistance Required: Independent Gait Deviations General Gait Pattern Antalgic Decreased Stride Length Factors Limiting Gait Function Factors Limiting Gait Function Decreased Strength Pain Stair Climbing Evaluation Technique/Endurance Stair Climbing Direction Descend Stair Climbing Technique Step to Step PT-OP-J Posture/Palpation/Skin Start: 08/02/18 14:33 Freq: Status: Active Protocol: Document 08/01/18 09:35 [facility] (Rec: 08/02/18 15:15 [facility] [id number]) Palpation Assessment Location Two Palpation Location plantar fascia Palpation Findings Soft Tissue Tightness left lateral malleolus Palpation Location left lateral malleolus Palpation Findings Edema Tenderness Palpation Details tenderness to palpation over the left malleulus Skin Assessment Other Assessments Skin Assessment Comments decreased sensation over the left great toe as compared to the right. Nivia does note that initially she was keepingher walking boot really tight and at that time she noted some numbness in her left great toe. PT-OP-K Range of Motion Start: 08/02/18 14:33 Freq: Status: Active Protocol: Document 08/01/18 09:35 [facility] (Rec: 08/02/18 15:15 [facility] [id number]) Ankle and Foot Goniometric Range of Motion Ankle and Foot Measured in Degrees Right Ankle/Foot ROM WFL Yes Dorsiflexion with Knee Extended 10 Plantarflexion 35 Inversion 40 Eversion 15 Left Ankle/Foot ROM WFL No Testing Position Supine Dorsiflexion with Knee Extended 5 Plantarflexion 25 Inversion 20 Eversion 5 Ankle and Foot ROM Limitations ROM Limitations Pain Comments Nivia has a very large amount of inversion normally so even though her ROM looks like a good amount of inversion she is limited as compared to the left side PT-OP-M Strength Start: 08/02/18 14:33 Freq: Status: Active Protocol: Document 08/01/18 09:35 [facility] (Rec: 08/02/18 15:15 [facility] [id number]) Ankle/Foot Strength Ankle and Foot Manual Muscle Testing Left Dorsiflexion (L4) 3- Fair- Plantarflexion (S1) 2+ Poor+ Inversion 3 Fair Eversion (S1) 2+ Poor+ Reason Not Measured Pain PT-OP-Q Treatments Start: 08/02/18 14:33 Freq: Status: Active Protocol: Document 08/18/18 09:00 DCW (Rec: 08/18/18 09:45 DC[facility] [id number]) Cardio Equipment Elliptical Duration (Minutes) 3 Resistance 0 Recumbent Bicycle Duration (Minutes) 5 Resistance 4 Seat Position 1 + back rest Gym Equipment Shuttle Recovery Unilateral Squats Resistance 25# Bilateral Squats Resistance 50# Shuttle Recovery Platform Stable Therapeutic Exercises Sitting Exercises BAPS Sitting Exercise Name PF/DF, Inv/Ev, CW/CCW Equipment Used BAPS Lv 3 Comments switched to standing Standing Exercises Active Plantar Flexion Standing Exercise Name PF on PADMAJA Calf Stretch Standing Exercise Name PADMAJA Manual Therapy Treatment Soft Tissue Mobilization 1 Body Location left foot and ankle Mobilization Type Strumming Intensity/Depth Superficial Body Position Supine Comments gentle STM over the lateral ankle and the plantar fascia with ROM of the toes and gentle stretching Joint Mobilizations Talocrural Joint Joint Talocrural Joint Mobilizations Direction A->P increase DF Neuro Re-Education Treatment Balance Activities Semi-tandem Surface Blue and Black Foam Ambulation across foam Surface Green, Blue, and Black foam PT-OP-R Modalities Start: 08/02/18 14:33 Freq: Status: Active Protocol: Document 08/18/18 09:00 DCW (Rec: 08/18/18 09:45 DCW [id number]) Electric Stimulation Electric Stimulation Interferential Current (IFC) Body Location L ankle Duration (Minutes) 15 Patient Position Hooklying Comments /c Cryocuff PT-OP-T Assessment and Plan Start: 08/02/18 14:33 Freq: Status: Active Protocol: Document 08/18/18 09:00 DCW (Rec: 08/18/18 09:45 DCW [id number]) Physical Therapy Assessment Impairments Impairments Activity Tolerance Balance Edema Gait Pain ROM Soft Tissue Mobility Strength Goals Five Impairment difficulty descending stairs, using step to step pattern Short Term Goal (STG) Nivia is able to descend stairs with a step over step pattern and without complaints of pain Four Impairment decreased balance left LE Short Term Goal (STG) improve weightbearing and balance of the left LE and Nivia is able to stand SLS for 10 seconds or greater on the left LE Three Impairment decreased weightbearing left LE with antalgic gait pattern Short Term Goal (STG) improve gait pattern for full weightbearing of the left LE without a visable limp and slowly progressing off the lateral ankle brace STG Duration 6 weeks One Impairment decreased left ankle strength Short Term Goal (STG) Nivia is instructed in a HEP for improving strength in the left ankle and she is tolerating strengthening without pain STG Duration 6 weeks Two Impairment Decreased left ankle ROM as compared to the right ankle Short Term Goal (STG) Improve left ankle ROM to WNL without pain STG Duration 6 weeks Assessment Summary Assessment Decreased complaints today, continued to cut down on the amount of weight-bearing TherEx. Physical Therapy Plan Frequency and Duration Frequency of Treatment 2x/Week Duration of Treatment 6 weeks Plan of Care Start Date 08/01/18 Plan of Care End Date 09/12/18 Therapeutic Interventions Therapeutic Interventions Aquatic Therapy Balance Training Gait Training Home Exercise Program Manual Therapy Self-Care/Home Management Soft Tissue Mobilization Taping Therapeutic Exercises Modalities Cold Pack/Ice Massage Electric Stimulation Next Visit Focus/Plan Next Note Type Treatment Note Next Visit Plan Progress TherEx and ROM as tolerated, reassess pain levels next visit
--- NOTE | 2018-08-22 17:35 | PT.OTN ---
Current Diagnoses Nondisplaced fracture of lateral malleolus of left fibula, subsequent encounter for closed fracture with routine healing (08/22/18) Physical Therapy Treatment Note PT-OP-A Visit Information Start: 08/02/18 14:33 Freq: Status: Active Protocol: Document 08/22/18 17:17 [facility] (Rec: 08/22/18 17:35 [facility] [id number]) Out-Patient Physical Therapy Visit Information Visit Information Visit Type Treatment Note Visit Start Time 09:00 Visit Stop Time 09:45 Total Visit Minutes 45 Visit Number 7 Evaluation Information Evaluation Date 08/01/18 PT-OP-B Current Condition Start: 08/02/18 14:33 Freq: Status: Active Protocol: Document 08/01/18 09:35 [facility] (Rec: 08/02/18 15:15 [facility] [id number]) Current Condition History of Current Condition Onset Date Jun 04 Current Complaints discomfort and swelling of the left ankle, not knowing what exercises to do History of Current Condition 57 year old female who fractured her distal fibula when she missed the last step going down a set of stairs on June 04. She was evaluated and placed in a walking boot until her last doctors visit on 07/03/18. At that time she was given a lace up ankle brace to wear for lateral stability. She has been doing ROM exercises since her last DrOlvin Visit and she notes this has helped. She is not sure what all she should be doing and seeks guidance to return to her normal level of activity. Nivia is a avid hiker and she would like to return to hiking when able. She does have a doctors appointment again this week and a additional x-ray will be taken at that time. Treatment Goals Patient/Caregiver Goals to return to hiking and walking Prior Functional Status Baseline Function- ADL's Independent Baseline Function- Mobility Independent PT-OP-C Subjective Start: 08/02/18 14:33 Freq: Status: Active Protocol: Document 08/22/18 17:17 [facility] (Rec: 08/22/18 17:35 [facility] [id number]) OP-PT Subjective Patient Comments Patient Comments Nivia reports she twisted her ankle on Tuesday while walking and it hurt a great deal on Tuesday. She took a oxycodone and then tuesday AM her ankle felt great. Today her ankle still feels great and she thinks she moved something into place when she twisted her ankle. Her chief complaint today is tightness in her plantar fascia PT-OP-F Manual Assessment Start: 08/02/18 14:33 Freq: Status: Active Protocol: Document 08/01/18 09:35 [facility] (Rec: 08/02/18 15:15 [facility] [id number]) Manual Assessments Soft Tissue Assessment Soft Tissue Mobility Assessment tightness in the posterior calf musculature , plantar fascia tightness on the left Joint Mobility Assessment Joint Mobility Assessment decreased ankle joint ROM into DF, PF, Inversion, and eversion as compared to the right, decreased great toe extension on the left as compared to the right PT-OP-G Mobility & Gait Start: 08/02/18 14:33 Freq: Status: Active Protocol: Document 08/01/18 09:35 [facility] (Rec: 08/02/18 15:15 [facility] [id number]) OP Gait Assessment Gait Gait Assistance Required: Independent Gait Deviations General Gait Pattern Antalgic Decreased Stride Length Factors Limiting Gait Function Factors Limiting Gait Function Decreased Strength Pain Stair Climbing Evaluation Technique/Endurance Stair Climbing Direction Descend Stair Climbing Technique Step to Step PT-OP-J Posture/Palpation/Skin Start: 08/02/18 14:33 Freq: Status: Active Protocol: Document 08/01/18 09:35 [facility] (Rec: 08/02/18 15:15 [facility] [id number]) Palpation Assessment Location Two Palpation Location plantar fascia Palpation Findings Soft Tissue Tightness left lateral malleolus Palpation Location left lateral malleolus Palpation Findings Edema Tenderness Palpation Details tenderness to palpation over the left malleulus Skin Assessment Other Assessments Skin Assessment Comments decreased sensation over the left great toe as compared to the right. Nivia does note that initially she was keepingher walking boot really tight and at that time she noted some numbness in her left great toe. PT-OP-K Range of Motion Start: 08/02/18 14:33 Freq: Status: Active Protocol: Document 08/01/18 09:35 [facility] (Rec: 08/02/18 15:15 [facility] [id number]) Ankle and Foot Goniometric Range of Motion Ankle and Foot Measured in Degrees Right Ankle/Foot ROM WFL Yes Dorsiflexion with Knee Extended 10 Plantarflexion 35 Inversion 40 Eversion 15 Left Ankle/Foot ROM WFL No Testing Position Supine Dorsiflexion with Knee Extended 5 Plantarflexion 25 Inversion 20 Eversion 5 Ankle and Foot ROM Limitations ROM Limitations Pain Comments Nivia has a very large amount of inversion normally so even though her ROM looks like a good amount of inversion she is limited as compared to the left side PT-OP-M Strength Start: 08/02/18 14:33 Freq: Status: Active Protocol: Document 08/01/18 09:35 [facility] (Rec: 08/02/18 15:15 [facility] [id number]) Ankle/Foot Strength Ankle and Foot Manual Muscle Testing Left Dorsiflexion (L4) 3- Fair- Plantarflexion (S1) 2+ Poor+ Inversion 3 Fair Eversion (S1) 2+ Poor+ Reason Not Measured Pain PT-OP-Q Treatments Start: 08/02/18 14:33 Freq: Status: Active Protocol: Document 08/22/18 17:17 [facility] (Rec: 08/22/18 17:35 [facility] [id number]) Cardio Equipment Recumbent Bicycle Duration (Minutes) 5 Resistance 4 Seat Position 1 + back rest Gym Equipment Shuttle Recovery Unilateral Squats Resistance 25# Shuttle Recovery Platform Unstable Bilateral Squats Resistance 50# Shuttle Recovery Platform Unstable Therapeutic Exercises Sidelying Exercises 1 Sidelying Exercise Name clam shells Standing Exercises 4 Standing Exercise Name standing hip hikes Reps/Minutes x 20 each side 3 Standing Exercise Name single leg balance Comments EO/EC 2 Standing Exercise Name standing single leg squats with lateral and posterior touches Reps/Minutes 2 x 10 each Calf Stretch Standing Exercise Name PADMAJA Manual Therapy Treatment Soft Tissue Mobilization 2 Body Location MFR to the plantar fascia PT-OP-R Modalities Start: 08/02/18 14:33 Freq: Status: Active Protocol: Document 08/18/18 09:00 DCW (Rec: 08/18/18 09:45 DCW [id number]) Electric Stimulation Electric Stimulation Interferential Current (IFC) Body Location L ankle Duration (Minutes) 15 Patient Position Hooklying Comments /c Cryocuff PT-OP-T Assessment and Plan Start: 08/02/18 14:33 Freq: Status: Active Protocol: Document 08/22/18 17:17 [facility] (Rec: 08/22/18 17:35 [facility] [id number]) Physical Therapy Assessment Assessment Summary Assessment Full ankle ROM today as compared to the left side. Began adding in lateral hip strengthening as Nivia notes her hip was IR. Good tolerance for all exercises today without pain Physical Therapy Plan Frequency and Duration Frequency of Treatment 2x/Week Duration of Treatment 6 weeks Plan of Care Start Date 08/01/18 Plan of Care End Date 09/12/18 Therapeutic Interventions Therapeutic Interventions Aquatic Therapy Balance Training Gait Training Home Exercise Program Manual Therapy Self-Care/Home Management Soft Tissue Mobilization Taping Therapeutic Exercises Modalities Cold Pack/Ice Massage Electric Stimulation Next Visit Focus/Plan Next Note Type Treatment Note Next Visit Plan Nivia may cut back to 1 xm per week after this tuesday. Work on progressing dynamic strengthening exercises
--- NOTE | 2018-08-25 09:44 | PT.OTN ---
Current Diagnoses Nondisplaced fracture of lateral malleolus of left fibula, subsequent encounter for closed fracture with routine healing (08/25/18) Physical Therapy Treatment Note PT-OP-A Visit Information Start: 08/02/18 14:33 Freq: Status: Active Protocol: Document 08/25/18 09:00 DCW (Rec: 08/25/18 09:44 DCW [id number]) Out-Patient Physical Therapy Visit Information Visit Information Visit Type Treatment Note Visit Start Time 09:00 Visit Stop Time 09:55 Total Visit Minutes 55 Visit Number 8 Evaluation Information Evaluation Date 08/01/18 PT-OP-B Current Condition Start: 08/02/18 14:33 Freq: Status: Active Protocol: Document 08/01/18 09:35 [facility] (Rec: 08/02/18 15:15 [facility] [id number]) Current Condition History of Current Condition Onset Date Jun 04 Current Complaints discomfort and swelling of the left ankle, not knowing what exercises to do History of Current Condition 57 year old female who fractured her distal fibula when she missed the last step going down a set of stairs on June 04. She was evaluated and placed in a walking boot until her last doctors visit on 07/03/18. At that time she was given a lace up ankle brace to wear for lateral stability. She has been doing ROM exercises since her last Dr. Visit and she notes this has helped. She is not sure what all she should be doing and seeks guidance to return to her normal level of activity. Nivia is a avid hiker and she would like to return to hiking when able. She does have a doctors appointment again this week and a additional x-ray will be taken at that time. Treatment Goals Patient/Caregiver Goals to return to hiking and walking Prior Functional Status Baseline Function- ADL's Independent Baseline Function- Mobility Independent PT-OP-C Subjective Start: 08/02/18 14:33 Freq: Status: Active Protocol: Document 08/25/18 09:00 DCW (Rec: 08/25/18 09:44 DCW [id number]) OP-PT Subjective Patient Comments Patient Comments Pt reports that her ankle is starting to tighten back up after she twisted it this past weekend, and it is returning to it's prior level of discomfort. PT-OP-F Manual Assessment Start: 08/02/18 14:33 Freq: Status: Active Protocol: Document 08/01/18 09:35 [facility] (Rec: 08/02/18 15:15 [facility] [id number]) Manual Assessments Soft Tissue Assessment Soft Tissue Mobility Assessment tightness in the posterior calf musculature , plantar fascia tightness on the left Joint Mobility Assessment Joint Mobility Assessment decreased ankle joint ROM into DF, PF, Inversion, and eversion as compared to the right, decreased great toe extension on the left as compared to the right PT-OP-G Mobility & Gait Start: 08/02/18 14:33 Freq: Status: Active Protocol: Document 08/01/18 09:35 [facility] (Rec: 08/02/18 15:15 [facility] [id number]) OP Gait Assessment Gait Gait Assistance Required: Independent Gait Deviations General Gait Pattern Antalgic Decreased Stride Length Factors Limiting Gait Function Factors Limiting Gait Function Decreased Strength Pain Stair Climbing Evaluation Technique/Endurance Stair Climbing Direction Descend Stair Climbing Technique Step to Step PT-OP-J Posture/Palpation/Skin Start: 08/02/18 14:33 Freq: Status: Active Protocol: Document 08/01/18 09:35 [facility] (Rec: 08/02/18 15:15 [facility] [id number]) Palpation Assessment Location Two Palpation Location plantar fascia Palpation Findings Soft Tissue Tightness left lateral malleolus Palpation Location left lateral malleolus Palpation Findings Edema Tenderness Palpation Details tenderness to palpation over the left malleulus Skin Assessment Other Assessments Skin Assessment Comments decreased sensation over the left great toe as compared to the right. Nivia does note that initially she was keepingher walking boot really tight and at that time she noted some numbness in her left great toe. PT-OP-K Range of Motion Start: 08/02/18 14:33 Freq: Status: Active Protocol: Document 08/01/18 09:35 [facility] (Rec: 08/02/18 15:15 [facility] [id number]) Ankle and Foot Goniometric Range of Motion Ankle and Foot Measured in Degrees Right Ankle/Foot ROM WFL Yes Dorsiflexion with Knee Extended 10 Plantarflexion 35 Inversion 40 Eversion 15 Left Ankle/Foot ROM WFL No Testing Position Supine Dorsiflexion with Knee Extended 5 Plantarflexion 25 Inversion 20 Eversion 5 Ankle and Foot ROM Limitations ROM Limitations Pain Comments Nivia has a very large amount of inversion normally so even though her ROM looks like a good amount of inversion she is limited as compared to the left side PT-OP-M Strength Start: 08/02/18 14:33 Freq: Status: Active Protocol: Document 08/01/18 09:35 [facility] (Rec: 08/02/18 15:15 [facility] [id number]) Ankle/Foot Strength Ankle and Foot Manual Muscle Testing Left Dorsiflexion (L4) 3- Fair- Plantarflexion (S1) 2+ Poor+ Inversion 3 Fair Eversion (S1) 2+ Poor+ Reason Not Measured Pain PT-OP-Q Treatments Start: 08/02/18 14:33 Freq: Status: Active Protocol: Document 08/25/18 09:00 DCW (Rec: 08/25/18 09:44 DCW [id number]) Cardio Equipment Recumbent Bicycle Duration (Minutes) 5 Resistance 5 Seat Position 1 + back rest Gym Equipment Shuttle Recovery Unilateral Squats Resistance 25# Shuttle Recovery Platform Stable Bilateral Squats Resistance 50# Shuttle Recovery Platform Unstable Shuttle Balance Red Details WBOS, NBOS, Staggered Stance Therapeutic Exercises Standing Exercises Step-downs Standing Exercise Name Step-downs Equipment Used 4 step Comments Left stays on step Active Plantar Flexion Standing Exercise Name PF on PADMAJA Calf Stretch Standing Exercise Name PADMAJA Manual Therapy Treatment Soft Tissue Mobilization 1 Body Location left foot and ankle Mobilization Type Strumming Intensity/Depth Superficial Body Position Sitting Comments gentle STM over the lateral ankle and the plantar fascia with ROM of the toes and gentle stretching Joint Mobilizations Talocrural Joint Joint Talocrural Joint Mobilizations Direction A->P increase DF PT-OP-R Modalities Start: 08/02/18 14:33 Freq: Status: Active Protocol: Document 08/18/18 09:00 DCW (Rec: 08/18/18 09:45 DCW [id number]) Electric Stimulation Electric Stimulation Interferential Current (IFC) Body Location L ankle Duration (Minutes) 15 Patient Position Hooklying Comments /c Cryocuff PT-OP-T Assessment and Plan Start: 08/02/18 14:33 Freq: Status: Active Protocol: Document 08/25/18 09:00 DCW (Rec: 08/25/18 09:44 DCW [id number]) Physical Therapy Assessment Impairments Impairments Activity Tolerance Balance Edema Gait Pain ROM Soft Tissue Mobility Strength Goals Five Impairment difficulty descending stairs, using step to step pattern Short Term Goal (STG) Nivia is able to descend stairs with a step over step pattern and without complaints of pain Four Impairment decreased balance left LE Short Term Goal (STG) improve weightbearing and balance of the left LE and Nivia is able to stand SLS for 10 seconds or greater on the left LE Three Impairment decreased weightbearing left LE with antalgic gait pattern Short Term Goal (STG) improve gait pattern for full weightbearing of the left LE without a visable limp and slowly progressing off the lateral ankle brace STG Duration 6 weeks One Impairment decreased left ankle strength Short Term Goal (STG) Nivia is instructed in a HEP for improving strength in the left ankle and she is tolerating strengthening without pain STG Duration 6 weeks Two Impairment Decreased left ankle ROM as compared to the right ankle Short Term Goal (STG) Improve left ankle ROM to WNL without pain STG Duration 6 weeks Assessment Summary Assessment Function has declined vs last visit, however overall she is still doing well, showing improvement from last week, and experiencing pain less frequently. Pt does have tightness throughout the joint , particularly at end-range DF /PF Physical Therapy Plan Frequency and Duration Frequency of Treatment 2x/Week Duration of Treatment 6 weeks Plan of Care Start Date 08/01/18 Plan of Care End Date 09/12/18 Therapeutic Interventions Therapeutic Interventions Aquatic Therapy Balance Training Gait Training Home Exercise Program Manual Therapy Self-Care/Home Management Soft Tissue Mobilization Taping Therapeutic Exercises Modalities Cold Pack/Ice Massage Electric Stimulation Next Visit Focus/Plan Next Note Type Treatment Note Next Visit Plan
--- NOTE | 2018-08-31 08:58 | PT.OTN ---
Current Diagnoses Nondisplaced fracture of lateral malleolus of left fibula, subsequent encounter for closed fracture with routine healing (08/28/18) Physical Therapy Treatment Note PT-OP-A Visit Information Start: 08/02/18 14:33 Freq: Status: Active Protocol: Document 08/28/18 12:30 [facility] (Rec: 08/31/18 08:53 [facility] [id number]) Out-Patient Physical Therapy Visit Information Visit Information Visit Type Aquatic Treatment Note Visit Start Time 12:30 Visit Stop Time 13:15 Total Visit Minutes 45 Visit Number 9 Number of [employer] Visits 0 Evaluation Information Evaluation Date 08/01/18 PT-OP-B Current Condition Start: 08/02/18 14:33 Freq: Status: Active Protocol: Document 08/01/18 09:35 [facility] (Rec: 08/02/18 15:15 [facility] [id number]) Current Condition History of Current Condition Onset Date Jun 04 Current Complaints discomfort and swelling of the left ankle, not knowing what exercises to do History of Current Condition 57 year old female who fractured her distal fibula when she missed the last step going down a set of stairs on June 04. She was evaluated and placed in a walking boot until her last doctors visit on 07/03/18. At that time she was given a lace up ankle brace to wear for lateral stability. She has been doing ROM exercises since her last Visit and she notes this has helped. She is not sure what all she should be doing and seeks guidance to return to her normal level of activity. Nivia is a avid hiker and she would like to return to hiking when able. She does have a doctors appointment again this week and a additional x-ray will be taken at that time. Treatment Goals Patient/Caregiver Goals to return to hiking and walking Prior Functional Status Baseline Function- ADL's Independent Baseline Function- Mobility Independent PT-OP-C Subjective Start: 08/02/18 14:33 Freq: Status: Active Protocol: Document 08/28/18 12:30 [facility] (Rec: 08/31/18 08:53 [facility] [id number]) OP-PT Subjective Patient Comments Patient Comments ankle feeling better today, less pain. PT-OP-F Manual Assessment Start: 08/02/18 14:33 Freq: Status: Active Protocol: Document 08/01/18 09:35 [facility] (Rec: 08/02/18 15:15 [facility] [id number]) Manual Assessments Soft Tissue Assessment Soft Tissue Mobility Assessment tightness in the posterior calf musculature , plantar fascia tightness on the left Joint Mobility Assessment Joint Mobility Assessment decreased ankle joint ROM into DF, PF, Inversion, and eversion as compared to the right, decreased great toe extension on the left as compared to the right PT-OP-G Mobility & Gait Start: 08/02/18 14:33 Freq: Status: Active Protocol: Document 08/01/18 09:35 [facility] (Rec: 08/02/18 15:15 [facility] [id number]) OP Gait Assessment Gait Gait Assistance Required: Independent Gait Deviations General Gait Pattern Antalgic Decreased Stride Length Factors Limiting Gait Function Factors Limiting Gait Function Decreased Strength Pain Stair Climbing Evaluation Technique/Endurance Stair Climbing Direction Descend Stair Climbing Technique Step to Step PT-OP-J Posture/Palpation/Skin Start: 08/02/18 14:33 Freq: Status: Active Protocol: Document 08/01/18 09:35 [facility] (Rec: 08/02/18 15:15 [facility] [id number]) Palpation Assessment Location Two Palpation Location plantar fascia Palpation Findings Soft Tissue Tightness left lateral malleolus Palpation Location left lateral malleolus Palpation Findings Edema Tenderness Palpation Details tenderness to palpation over the left malleulus Skin Assessment Other Assessments Skin Assessment Comments decreased sensation over the left great toe as compared to the right. Nivia does note that initially she was keepingher walking boot really tight and at that time she noted some numbness in her left great toe. PT-OP-K Range of Motion Start: 08/02/18 14:33 Freq: Status: Active Protocol: Document 08/01/18 09:35 [facility] (Rec: 08/02/18 15:15 [facility] [id number]) Ankle and Foot Goniometric Range of Motion Ankle and Foot Measured in Degrees Right Ankle/Foot ROM WFL Yes Dorsiflexion with Knee Extended 10 Plantarflexion 35 Inversion 40 Eversion 15 Left Ankle/Foot ROM WFL No Testing Position Supine Dorsiflexion with Knee Extended 5 Plantarflexion 25 Inversion 20 Eversion 5 Ankle and Foot ROM Limitations ROM Limitations Pain Comments Nivia has a very large amount of inversion normally so even though her ROM looks like a good amount of inversion she is limited as compared to the left side PT-OP-M Strength Start: 08/02/18 14:33 Freq: Status: Active Protocol: Document 08/01/18 09:35 [facility] (Rec: 08/02/18 15:15 [facility] [id number]) Ankle/Foot Strength Ankle and Foot Manual Muscle Testing Left Dorsiflexion (L4) 3- Fair- Plantarflexion (S1) 2+ Poor+ Inversion 3 Fair Eversion (S1) 2+ Poor+ Reason Not Measured Pain PT-OP-Q Treatments Start: 08/02/18 14:33 Freq: Status: Active Protocol: Document 08/25/18 09:00 DCW (Rec: 08/25/18 09:44 DCW [id number]) Cardio Equipment Recumbent Bicycle Duration (Minutes) 5 Resistance 5 Seat Position 1 + back rest Gym Equipment Shuttle Recovery Unilateral Squats Resistance 25# Shuttle Recovery Platform Stable Bilateral Squats Resistance 50# Shuttle Recovery Platform Unstable Shuttle Balance Red Details WBOS, NBOS, Staggered Stance Therapeutic Exercises Standing Exercises Step-downs Standing Exercise Name Step-downs Equipment Used 4 step Comments Left stays on step Active Plantar Flexion Standing Exercise Name PF on PADMAJA Calf Stretch Standing Exercise Name PADMAJA Manual Therapy Treatment Soft Tissue Mobilization 1 Body Location left foot and ankle Mobilization Type Strumming Intensity/Depth Superficial Body Position Sitting Comments gentle STM over the lateral ankle and the plantar fascia with ROM of the toes and gentle stretching Joint Mobilizations Talocrural Joint Joint Talocrural Joint Mobilizations Direction A->P increase DF PT-OP-R Modalities Start: 08/02/18 14:33 Freq: Status: Active Protocol: Document 08/18/18 09:00 DCW (Rec: 08/18/18 09:45 DCW [id number]) Electric Stimulation Electric Stimulation Interferential Current (IFC) Body Location L ankle Duration (Minutes) 15 Patient Position Hooklying Comments /c Cryocuff PT-OP-S Aquatic Treatment Start: 08/31/18 08:54 Freq: Status: Active Protocol: Document 08/28/18 08:54 [facility] (Rec: 08/31/18 08:58 [facility] [id number]) Aquatics Treatment Pool Entry/Exit Pool Entry/Exit Method Stairs Assistance Verbal Cues Water Walking fwd, bck, side, august, straight leg august Water Level Chest Level Level of Assistance Verbal Cues Lower Extremity Exercises step-ups Water Level Chest Level Reps/Duration 10x hip circles Body Position Standing Water Level Chest Level Reps/Duration 10x hip ab/ad Body Position Standing Water Level Chest Level Reps/Duration 10x hip flex/ext Body Position Standing Water Level Chest Level Reps/Duration 10x squats Body Position Standing Water Level Chest Level Reps/Duration 12x ankle circles Body Position Standing Water Level Waist Level Reps/Duration 10x knee flex/ext Body Position Standing Water Level Chest Level Reps/Duration 10x toe raise Body Position Standing Water Level Chest Level Reps/Duration 10x heel raise Body Position Standing Water Level Chest Level Reps/Duration 10x Lower Extremity Stretches HS Body Position Standing Water Level Chest Level HC Body Position Standing Water Level Chest Level Reps/Duration 2x [place] Activities [place] Activities Bicycle Bicycle Backwards [place] Running Hip Abduction/Adduction Equipment flotation belt (S) Duration 10' PT-OP-T Assessment and Plan Start: 08/02/18 14:33 Freq: Status: Active Protocol: Document 08/28/18 12:30 [facility] (Rec: 08/31/18 08:53 [facility] [id number]) Physical Therapy Assessment Impairments Impairments Activity Tolerance Balance Edema Gait Pain ROM Soft Tissue Mobility Strength Goals Five Impairment difficulty descending stairs, using step to step pattern Short Term Goal (STG) Nivia is able to descend stairs with a step over step pattern and without complaints of pain Four Impairment decreased balance left LE Short Term Goal (STG) improve weightbearing and balance of the left LE and Nivia is able to stand SLS for 10 seconds or greater on the left LE Three Impairment decreased weightbearing left LE with antalgic gait pattern Short Term Goal (STG) improve gait pattern for full weightbearing of the left LE without a visable limp and slowly progressing off the lateral ankle brace STG Duration 6 weeks One Impairment decreased left ankle strength Short Term Goal (STG) Nivia is instructed in a HEP for improving strength in the left ankle and she is tolerating strengthening without pain STG Duration 6 weeks Two Impairment Decreased left ankle ROM as compared to the right ankle Short Term Goal (STG) Improve left ankle ROM to WNL without pain STG Duration 6 weeks Assessment Summary Assessment Patient denied pain with aquatic therapy, good tolerance for aquatic exercise except for coolness of water. Physical Therapy Plan Frequency and Duration Frequency of Treatment 2x/Week Duration of Treatment 6 weeks Plan of Care Start Date 08/01/18 Plan of Care End Date 09/12/18 Therapeutic Interventions Therapeutic Interventions Aquatic Therapy Balance Training Gait Training Home Exercise Program Manual Therapy Self-Care/Home Management Soft Tissue Mobilization Taping Therapeutic Exercises Modalities Cold Pack/Ice Massage Electric Stimulation Next Visit Focus/Plan Next Note Type Treatment Note Next Visit Plan Continue PT per POC. Discuss whether additional aquatic therapy desired as part of POC .
--- NOTE | 2018-09-01 11:56 | PT.OTN ---
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 She was evaluated and placed in a walking boot until her last doctors visit on 07/03/18. At that time she was given a lace up ankle brace to wear for lateral stability. She has been doing ROM exercises since her last DrOlvin Visit and she notes this has helped. She is not sure what all she should be doing and seeks guidance to return to her normal level of activity. Nivia is a avid hiker and she would like to return to hiking when able. She does have a doctors appointment again this week and a additional x-ray will be taken at that time. Treatment Goals Patient/Caregiver Goals to return to hiking and walking Prior Functional Status Baseline Function- ADL's Independent Baseline Function- Mobility Independent PT-OP-C Subjective Start: 08/02/18 14:33 Freq: Status: Active Protocol: Document 09/01/18 11:10 DCW (Rec: 09/01/18 11:56 DCW [id number]) OP-PT Subjective Patient Comments Patient Comments Pt reports her ankle felt fantastic following her aquatic therapy session Tuesday , and has just started to hurt a little bit again last night . PT-OP-F Manual Assessment Start: 08/02/18 14:33 Freq: Status: Active Protocol: Document 08/01/18 09:35 [facility] (Rec: 08/02/18 15:15 [facility]CLUD[facility] THE [facility] [id number]) Manual Assessments Soft Tissue Assessment Soft Tissue Mobility Assessment tightness in the posterior calf musculature , plantar fascia tightness on the left Joint Mobility Assessment Joint Mobility Assessment decreased ankle joint ROM into DF, PF, Inversion, and eversion as compared to the right, decreased great toe extension on the left as compared to the right PT-OP-G Mobility & Gait Start: 08/02/18 14:33 Freq: Status: Active Protocol: Document 08/01/18 09:35 [facility]ES [facility] (Rec: 08/02/18 15:15 [facility]CLUDES THE [facility] [id number]) OP Gait Assessment Gait Gait Assistance Required: Independent Gait Deviations General Gait Pattern Antalgic Decreased Stride Length Factors Limiting Gait Function Factors Limiting Gait Function Decreased Strength Pain Stair Climbing Evaluation Technique/Endurance Stair Climbing Direction Descend Stair Climbing Technique Step to Step PT-OP-J Posture/Palpation/Skin Start: 08/02/18 14:33 Freq: Status: Active Protocol: Document 08/01/18 09:35 [facility]CLUDES [facility] (Rec: 08/02/18 15:15 [facility]CLUDES THE [facility] [id number]) Palpation Assessment Location Two Palpation Location plantar fascia Palpation Findings Soft Tissue Tightness left lateral malleolus Palpation Location left lateral malleolus Palpation Findings Edema Tenderness Palpation Details tenderness to palpation over the left malleulus Skin Assessment Other Assessments Skin Assessment Comments decreased sensation over the left great toe as compared to the right. Nivia does note that initially she was keepingher walking boot really tight and at that time she noted some numbness in her left great toe. PT-OP-K Range of Motion Start: 08/02/18 14:33 Freq: Status: Active Protocol: Document 08/01/18 09:35 [facility]CLUDES THE [facility] (Rec: 08/02/18 15:15 [facility]CLUDES THE [facility] [id number]) Ankle and Foot Goniometric Range of Motion Ankle and Foot Measured in Degrees Right Ankle/Foot ROM WFL Yes Dorsiflexion with Knee Extended 10 Plantarflexion 35 Inversion 40 Eversion 15 Left Ankle/Foot ROM WFL No Testing Position Supine Dorsiflexion with Knee Extended 5 Plantarflexion 25 Inversion 20 Eversion 5 Ankle and Foot ROM Limitations ROM Limitations Pain Comments Nivia has a very large amount of inversion normally so even though her ROM looks like a good amount of inversion she is limited as compared to the left side PT-OP-M Strength Start: 08/02/18 14:33 Freq: Status: Active Protocol: Document 08/01/18 09:35 [facility] (Rec: 08/02/18 15:15 [facility] [id number]) Ankle/Foot Strength Ankle and Foot Manual Muscle Testing Left Dorsiflexion (L4) 3- Fair- Plantarflexion (S1) 2+ Poor+ Inversion 3 Fair Eversion (S1) 2+ Poor+ Reason Not Measured Pain PT-OP-Q Treatments Start: 08/02/18 14:33 Freq: Status: Active Protocol: Document 09/01/18 11:10 DCW (Rec: 09/01/18 11:56 DCW [id number]) Cardio Equipment Recumbent Bicycle Duration (Minutes) 5 Resistance 5 Seat Position 1 + back rest Gym Equipment Shuttle Recovery Unilateral Heel Raises Resistance 25# Unilateral Squats Resistance 37# Shuttle Recovery Platform Stable Bilateral Squats Resistance 75# Shuttle Recovery Platform Stable Shuttle Balance Red Details WBOS, NBOS, Staggered Stance, Lateral Weight Shift Therapeutic Exercises Sitting Exercises 4-Way ankle flexion Sitting Exercise Name 4-Way ankle flexion Side left Resistance Lv 3 Equipment Used T-band Standing Exercises 3 Standing Exercise Name single leg balance Comments EO/EC, blue foam Step-downs Standing Exercise Name Step-downs Equipment Used 6 step Comments Left stays on step Calf Stretch Standing Exercise Name PADMAJA Manual Therapy Treatment Soft Tissue Mobilization 1 Body Location left foot and ankle Mobilization Type Strumming Intensity/Depth Superficial Body Position Sitting Comments gentle STM over the lateral ankle and the plantar fascia with ROM of the toes and gentle stretching Joint Mobilizations Talocrural Joint Joint Talocrural Joint Mobilizations Direction A->P increase DF PT-OP-R Modalities Start: 08/02/18 14:33 Freq: Status: Active Protocol: Document 08/18/18 09:00 DCW (Rec: 08/18/18 09:45 DCW [id number]) Electric Stimulation Electric Stimulation Interferential Current (IFC) Body Location L ankle Duration (Minutes) 15 Patient Position Hooklying Comments /c Cryocuff PT-OP-S Aquatic Treatment Start: 08/31/18 08:54 Freq: Status: Active Protocol: Document 08/28/18 08:54 SAK (Rec: 08/31/18 08:58 SAK [id number]) Aquatics Treatment Pool Entry/Exit Pool Entry/Exit Method Stairs Assistance Verbal Cues Water Walking fwd, bck, side, august, straight leg august Water Level Chest Level Level of Assistance Verbal Cues Lower Extremity Exercises step-ups Water Level Chest Level Reps/Duration 10x hip circles Body Position Standing Water Level Chest Level Reps/Duration 10x hip ab/ad Body Position Standing Water Level Chest Level Reps/Duration 10x hip flex/ext Body Position Standing Water Level Chest Level Reps/Duration 10x squats Body Position Standing Water Level Chest Level Reps/Duration 12x ankle circles Body Position Standing Water Level Waist Level Reps/Duration 10x knee flex/ext Body Position Standing Water Level Chest Level Reps/Duration 10x toe raise Body Position Standing Water Level Chest Level Reps/Duration 10x heel raise Body Position Standing Water Level Chest Level Reps/Duration 10x Lower Extremity Stretches HS Body Position Standing Water Level Chest Level HC Body Position Standing Water Level Chest Level Reps/Duration 2x [place] Activities [place] Activities Bicycle Bicycle Backwards [place] Running Hip Abduction/Adduction Equipment flotation belt (S) Duration 10' PT-OP-T Assessment and Plan Start: 08/02/18 14:33 Freq: Status: Active Protocol: Document 09/01/18 11:10 DCW (Rec: 09/01/18 11:56 DCW [id number]) Physical Therapy Assessment Impairments Impairments Activity Tolerance Balance Edema Gait Pain ROM Soft Tissue Mobility Strength Goals Five Impairment difficulty descending stairs, using step to step pattern Short Term Goal (STG) Nivia is able to descend stairs with a step over step pattern and without complaints of pain Four Impairment decreased balance left LE Short Term Goal (STG) improve weightbearing and balance of the left LE and Nivia is able to stand SLS for 10 seconds or greater on the left LE Three Impairment decreased weightbearing left LE with antalgic gait pattern Short Term Goal (STG) improve gait pattern for full weightbearing of the left LE without a visable limp and slowly progressing off the lateral ankle brace STG Duration 6 weeks One Impairment decreased left ankle strength Short Term Goal (STG) Nivia is instructed in a HEP for improving strength in the left ankle and she is tolerating strengthening without pain STG Duration 6 weeks Two Impairment Decreased left ankle ROM as compared to the right ankle Short Term Goal (STG) Improve left ankle ROM to WNL without pain STG Duration 6 weeks Assessment Summary Assessment Patient making excellent progress with her therapy, much less difficulty and reported pain with a high quality of functional movement . Physical Therapy Plan Frequency and Duration Frequency of Treatment 2x/Week Duration of Treatment 6 weeks Plan of Care Start Date 08/01/18 Plan of Care End Date 09/12/18 Therapeutic Interventions Therapeutic Interventions Aquatic Therapy Balance Training Gait Training Home Exercise Program Manual Therapy Self-Care/Home Management Soft Tissue Mobilization Taping Therapeutic Exercises Modalities Cold Pack/Ice Massage Electric Stimulation Next Visit Focus/Plan Next Note Type Treatment Note Next Visit Plan Continue current POC
--- NOTE | 2018-09-15 09:23 | PT.OTN ---
Current Diagnoses Nondisplaced fracture of lateral malleolus of left fibula, subsequent encounter for closed fracture with routine healing (09/15/18) Physical Therapy Treatment Note PT-OP-A Visit Information Start: 08/02/18 14:33 Freq: Status: Active Protocol: Document 09/15/18 09:00 DCW (Rec: 09/15/18 09:23 [facility] [id number]) Out-Patient Physical Therapy Visit Information Visit Information Visit Type Progress Note Visit Start Time 09:00 Visit Stop Time 09:17 Total Visit Minutes 17 Visit Number 11 Evaluation Information Evaluation Date 08/01/18 PT-OP-B Current Condition Start: 08/02/18 14:33 Freq: Status: Active Protocol: Document 08/01/18 09:35 [facility] (Rec: 08/02/18 15:15 [facility] [id number]) Current Condition History of Current Condition Onset Date Jun 04 Current Complaints discomfort and swelling of the left ankle, not knowing what exercises to do History of Current Condition 57 year old female who fractured her distal fibula when she missed the last step going down a set of stairs on June 04. She was evaluated and placed in a walking boot until her last doctors visit on 07/03/18. At that time she was given a lace up ankle brace to wear for lateral stability. She has been doing ROM exercises since her last DrOlvin Visit and she notes this has helped. She is not sure what all she should be doing and seeks guidance to return to her normal level of activity. Nivia is a avid hiker and she would like to return to hiking when able. She does have a doctors appointment again this week and a additional x-ray will be taken at that time. Treatment Goals Patient/Caregiver Goals to return to hiking and walking Prior Functional Status Baseline Function- ADL's Independent Baseline Function- Mobility Independent PT-OP-C Subjective Start: 08/02/18 14:33 Freq: Status: Active Protocol: Document 09/15/18 09:00 DCW (Rec: 09/15/18 09:23 [facility] [id number]) OP-PT Subjective Patient Comments Patient Comments Pt reports she has no issues or concerns, notes mild numbness remaining in her left great toe, and I just don't really like the feeling of being barefoot, but I can't really explain why. PT-OP-F Manual Assessment Start: 08/02/18 14:33 Freq: Status: Active Protocol: Document 09/15/18 09:00 DCW (Rec: 09/15/18 09:11 DCW [id number]) Manual Assessments Soft Tissue Assessment Soft Tissue Mobility Assessment mild tightness in the posterior calf musculature PT-OP-G Mobility & Gait Start: 08/02/18 14:33 Freq: Status: Active Protocol: Document 09/15/18 09:00 DCW (Rec: 09/15/18 09:11 DCW [id number]) OP Gait Assessment Gait Gait Assistance Required: Independent Gait Deviations General Gait Pattern Within Normal Limits Stair Climbing Evaluation Technique/Endurance Stair Climbing Direction Ascend and Descend Stair Climbing Technique Step Over Step PT-OP-J Posture/Palpation/Skin Start: 08/02/18 14:33 Freq: Status: Active Protocol: Document 09/15/18 09:00 DCW (Rec: 09/15/18 09:11 DCW [id number]) Palpation Assessment Location Two Palpation Location plantar fascia Palpation Findings None/Normal left lateral malleolus Palpation Location left lateral malleolus Palpation Findings None/Normal Palpation Details no tenderness to palpation over the left malleulus Skin Assessment Other Assessments Skin Assessment Comments mild numbness/tingling sensation /c light touch of left great toe PT-OP-K Range of Motion Start: 08/02/18 14:33 Freq: Status: Active Protocol: Document 09/15/18 09:00 DCW (Rec: 09/15/18 09:11 DCW [id number]) Ankle and Foot Goniometric Range of Motion Ankle and Foot Measured in Degrees Right Ankle/Foot ROM WFL Yes Testing Position Sitting Dorsiflexion with Knee Extended 10 Plantarflexion 50 Inversion 40 Eversion 15 Left Ankle/Foot ROM WFL Yes Testing Position Sitting Dorsiflexion with Knee Extended 10 Plantarflexion 50 Inversion 40 Eversion 15 PT-OP-M Strength Start: 08/02/18 14:33 Freq: Status: Active Protocol: Document 09/15/18 09:00 DCW (Rec: 09/15/18 09:11 DCW [id number]) Ankle/Foot Strength Ankle and Foot Manual Muscle Testing Left Dorsiflexion (L4) 5 Normal Plantarflexion (S1) 5 Normal Inversion 5 Normal Eversion (S1) 5 Normal Comments 20 single leg heel raises PT-OP-Q Treatments Start: 08/02/18 14:33 Freq: Status: Active Protocol: Document 09/15/18 09:00 DCW (Rec: 09/15/18 09:23 DCW [id number]) Manual Therapy Treatment Other Other Manual Treatments Reassessment testing: ROM, MMT , Sensory testing PT-OP-R Modalities Start: 08/02/18 14:33 Freq: Status: Active Protocol: Document 08/18/18 09:00 DCW (Rec: 08/18/18 09:45 DCW [id number]) Electric Stimulation Electric Stimulation Interferential Current (IFC) Body Location L ankle Duration (Minutes) 15 Patient Position Hooklying Comments /c Cryocuff PT-OP-S Aquatic Treatment Start: 08/31/18 08:54 Freq: Status: Active Protocol: Document 08/28/18 08:54 SAK (Rec: 08/31/18 08:58 SAK [id number]) Aquatics Treatment Pool Entry/Exit Pool Entry/Exit Method Stairs Assistance Verbal Cues Water Walking fwd, bck, side, august, straight leg august Water Level Chest Level Level of Assistance Verbal Cues Lower Extremity Exercises step-ups Water Level Chest Level Reps/Duration 10x hip circles Body Position Standing Water Level Chest Level Reps/Duration 10x hip ab/ad Body Position Standing Water Level Chest Level Reps/Duration 10x hip flex/ext Body Position Standing Water Level Chest Level Reps/Duration 10x squats Body Position Standing Water Level Chest Level Reps/Duration 12x ankle circles Body Position Standing Water Level Waist Level Reps/Duration 10x knee flex/ext Body Position Standing Water Level Chest Level Reps/Duration 10x toe raise Body Position Standing Water Level Chest Level Reps/Duration 10x heel raise Body Position Standing Water Level Chest Level Reps/Duration 10x Lower Extremity Stretches HS Body Position Standing Water Level Chest Level HC Body Position Standing Water Level Chest Level Reps/Duration 2x [place] Activities [place] Activities Bicycle Bicycle Backwards Cross [place] Running Hip Abduction/Adduction Equipment flotation belt (S) Duration 10' PT-OP-T Assessment and Plan Start: 08/02/18 14:33 Freq: Status: Active Protocol: Document 09/15/18 09:00 DCW (Rec: 09/15/18 09:23 DCW [id number]) Physical Therapy Assessment Impairments Impairments Activity Tolerance Balance Edema Gait Pain ROM Soft Tissue Mobility Strength Goals Five Impairment difficulty descending stairs, using step to step pattern Short Term Goal (STG) Nivia is able to descend stairs with a step over step pattern and without complaints of pain STG Duration Met Four Impairment decreased balance left LE Short Term Goal (STG) improve weightbearing and balance of the left LE and Nivia is able to stand SLS for 10 seconds or greater on the left LE STG Duration Met Three Impairment decreased weightbearing left LE with antalgic gait pattern Short Term Goal (STG) improve gait pattern for full weightbearing of the left LE without a visable limp and slowly progressing off the lateral ankle brace STG Duration Met One Impairment decreased left ankle strength Short Term Goal (STG) Nivia is instructed in a HEP for improving strength in the left ankle and she is tolerating strengthening without pain STG Duration Met Two Impairment Decreased left ankle ROM as compared to the right ankle Short Term Goal (STG) Improve left ankle ROM to WNL without pain STG Duration Met Progress Towards Goals Progress Towards Goals Goals Met Assessment Summary Assessment Patient has met all goals, reports no concerns or issues, ambulates with no sign of antalgic gait, and her left ROM and MMT have returned to premorbid levels. Pt agreeable to discharge from skilled therapy at this time. Physical Therapy Plan Frequency and Duration Frequency of Treatment 1x/Week Duration of Treatment 1 day Plan of Care Start Date 09/15/18 Plan of Care End Date 09/16/18 Therapeutic Interventions Therapeutic Interventions Aquatic Therapy Balance Training Gait Training Home Exercise Program Manual Therapy Self-Care/Home Management Soft Tissue Mobilization Taping Therapeutic Exercises Modalities Cold Pack/Ice Massage Electric Stimulation Next Visit Focus/Plan Next Note Type Discharge Summary
--- NOTE | 2018-09-15 09:23 | PT.OPPOC ---
Current Diagnoses Nondisplaced fracture of lateral malleolus of left fibula, subsequent encounter for closed fracture with routine healing (09/15/18) Provider Visit Care Team Role Provider Type Alysa Olmedo DO Family Provider Physician Primary Care Provider Specialty: Family Practice Address: [address] [place] [address], [id number] Email: [email or web address] Pena PA-C Attending Provider Physician Specialty: Orthopedic Surgery Address: [address] [place] [address], [id number] Fax: Email: Plan Of Care PT-OP-T Assessment and Plan Start: 08/02/18 14:33 Freq: Status: Active Protocol: Document 09/15/18 09:00 DCW (Rec: 09/15/18 09:23 DCW [id number]) Physical Therapy Assessment Impairments Impairments Activity Tolerance Balance Edema Gait Pain ROM Soft Tissue Mobility Strength Goals Five Impairment difficulty descending stairs, using step to step pattern Short Term Goal (STG) Nivia is able to descend stairs with a step over step pattern and without complaints of pain STG Duration Met Four Impairment decreased balance left LE Short Term Goal (STG) improve weightbearing and balance of the left LE and Nivia is able to stand SLS for 10 seconds or greater on the left LE STG Duration Met Three Impairment decreased weightbearing left LE with antalgic gait pattern Short Term Goal (STG) improve gait pattern for full weightbearing of the left LE without a visable limp and slowly progressing off the lateral ankle brace STG Duration Met One Impairment decreased left ankle strength Short Term Goal (STG) Nivia is instructed in a HEP for improving strength in the left ankle and she is tolerating strengthening without pain STG Duration Met Two Impairment Decreased left ankle ROM as compared to the right ankle Short Term Goal (STG) Improve left ankle ROM to WNL without pain STG Duration Met Progress Towards Goals Progress Towards Goals Goals Met Assessment Summary Assessment Patient has met all goals, reports no concerns or issues, ambulates with no sign of antalgic gait, and her left ROM and MMT have returned to premorbid levels. Pt agreeable to discharge from skilled therapy at this time. Physical Therapy Plan Frequency and Duration Frequency of Treatment 1x/Week Duration of Treatment 1 day Plan of Care Start Date 09/15/18 Plan of Care End Date 09/16/18 Therapeutic Interventions Therapeutic Interventions Aquatic Therapy Balance Training Gait Training Home Exercise Program Manual Therapy Self-Care/Home Management Soft Tissue Mobilization Taping Therapeutic Exercises Modalities Cold Pack/Ice Massage Electric Stimulation Next Visit Focus/Plan Next Note Type Discharge Summary Plan of Care Dates Plan of Care Start Date 09/15/18 Plan of Care End Date 09/16/18 Please Sign and Return: I have reviewed this Plan of Care and certify that the skilled therapy services above are required to meet the patient?s needs. Physician Signature Date Printed Name and Credentials Clinical Instructor Signature Printed Name and Credentials
== END 2018-09-16 12:06 ==
LOC: PHYS 09:00
PROVIDERS: Family Provider Family Medicine; PCP Family Medicine; Visit Provider Physician Assistant
DX: S82.65XD Nondisplaced fracture of lateral malleolus of left fibula, subsequent encounter for closed fracture with routine healing (principal)
CPT/HCPCS: 97014; 97110; 97113; 97140; 97161; G0283

== ENCOUNTER → 2018-11-08 15:14 | Outpatient (CLI) | payer OTHER, SELFPAY ==
--- NOTE | 2018-11-08 | DI.MG.S_ITS ---
BILATERAL DIGITAL SCREENING MAMMOGRAM 3D/2D WITH CAD: 11/08/2018 CLINICAL: Routine screening. Family history of breast cancer. Comparison is made to exams dated: 08/01/2017 mammogram - [facility], 03/31/2015 mammogram, and 03/04/2014 mammogram - [facility]. The tissue of both breasts is heterogeneously dense. This may lower the sensitivity of mammography. Current study was also evaluated with a Computer Aided Detection (CAD) system. No significant masses, calcifications, or other findings are seen in either breast. There has been no significant interval change. IMPRESSION: NEGATIVE There is no mammographic evidence of malignancy. A 1 year screening mammogram is recommended. This exam was interpreted at Station ID: [id number]. NOTE: For mammograms, a report in lay terms will be sent to the patient. Approximately 15% of breast malignancies will not be visualized mammographically. In the management of a palpable breast mass, a negative mammogram must not discourage biopsy of a clinically suspicious lesion. Electronically Signed By: Mayra cooney/mariano:11/08/2018 19:56:00 letter sent: Normal Exam ACR BI-RADS Category 1: Negative [id number]
== END ==
PROVIDERS: Family Provider Family Medicine; PCP Family Medicine; Visit Provider Nurse Practitioner Family
DX: Z12.31 Encounter for screening mammogram for malignant neoplasm of breast (principal); Z80.3 Family history of malignant neoplasm of breast
CPT/HCPCS: 77063; 77067

== ENCOUNTER → 2018-12-08 09:09 | Outpatient (CLI) | payer OTHER, SELFPAY ==
--- NOTE | 2018-12-08 09:10 | DI.US.S_ITS ---
PROCEDURE: US SOFT TISSUE HEAD AND NECK INDICATIONS: NODULE LEFT NECK TECHNIQUE: Real-time scanning was performed of the neck region of interest, with image documentation. COMPARISON: None. FINDINGS: The area of current clinical concern is at the region of the neck below the left submandibular gland. The patient states there was a palpable lump in that area but that has resolved. The area was evaluated, and reveals no underlying abnormality. More inferiorly at the supraclavicular fossa no enlarged lymph nodes are seen. IMPRESSION: The area of current clinical concern reportedly has diminished in palpable abnormality or completely resolved. No underlying adenopathy or other abnormality is seen in that area. Dictated by: Delfin Torres M.D. on 12/08/2018 at 10:25 Approved by: Delfin Torres M.D. on 12/08/2018 at 10:26
== END ==
PROVIDERS: Family Provider Family Medicine; PCP Family Medicine; Visit Provider Nurse Practitioner Family
DX: R22.1 Localized swelling, mass and lump, neck (principal)
CPT/HCPCS: 76536

== ENCOUNTER → 2018-12-26 07:19 | Outpatient (CLI) | payer OTHER, SELFPAY ==
[2018-12-26 08:36] LABS: Hematocrit 41.6 % (36-46); Hemoglobin 14.2 g/dL (12.0-16.0); Mean Corpuscular Hemoglobin 29.6 PG (26-34); Mean Corpuscular Volume 87.1 fL (80-100); Platelet Count 221 X10^3/uL (150-400); Red Blood Cell Count 4.78 X10^6/uL (4.0-5.2); Red Cell Distribution Width 12.8 % (11.6-14.8); White Blood Cell Count 5.1 X10^3/uL (4.5-11.0)
[2018-12-26 09:05] LABS: Alanine Aminotransferase 20 IU/L (9-52); Albumin 4.7 g/dL (3.5-5.0); Albumin Globulin Ratio 1.6 (1.0-2.8); Alkaline Phosphatase 74 U/L (38-126); Aspartate Aminotransferase 29 IU/L (14-36); Bilirubin Total 1.4 mg/dL (0.2-1.3); Blood Urea Nitrogen 21 mg/dL (7-17); Calcium 10.2 mg/dL (8.4-10.2); Carbon Dioxide 30 mmol/L (22-32); Chloride 102 mmol/L (98-107); Estimated Glomerular Filt Rate > 60.0 mL/min (>60); Globulin 2.9 g/dL (1.7-4.1); Glucose 95 mg/dL (70-100); HEMOLYSIS < 15 (0-50); Potassium 4.9 mmol/L (3.4-5.1); Sodium 141 mmol/L (137-145); Total Protein 7.6 g/dL (6.3-8.2)
== END ==
PROVIDERS: PCP Nurse Practitioner Family; Visit Provider Nurse Practitioner Family
DX: R74.8 Abnormal levels of other serum enzymes (principal); Z01.818 Encounter for other preprocedural examination
CPT/HCPCS: 36415; 80053; 85027

== ENCOUNTER 2019-03-16 06:58 | Emergency (ER) | payer OTHER, SELFPAY ==
[2019-03-16 07:15] VITALS: BP 150/79; PULSE 76; RESP 18; TEMP 36.6; O2SAT 98; BMI 19.0
--- NOTE | 2019-03-16 07:16 | ED_ITS ---
HPI - GI Bleed General Chief complaint: GI Bleed Stated complaint: loss of appetite, weight loss blood in toilet Time Seen by Provider: 03/16/19 07:10 Source: patient Mode of arrival: Ambulatory Limitations: no limitations History of Present Illness HPI Narrative: 58-year-old female nonsmoker with benign medical history presents with a chief complaint of multiple weeks of decreased appetite and unplanned weight loss of 5 lb. She has episodes of intense lower abdominal pain which seemed to be unprovoked. She denies any palliation or radiation. She denies any change in her bowel habits but does occasionally no bright red blood in the toilet water. She denies dysuria, frequency or urgency. She has not dizzy, weak or lightheaded. She denies fever or chills. Her last colonoscopy was about 5 years ago and totally normal. She denies any upper respiratory complaints. She has had no chest pain. She denies any family history of cancer or bowel problems MD complaint: blood on toilet paper Onset (ago): week(s) Pain Consistency: intermittent Severity: moderate Relieving factors: none Exacerbating factors: none Associated symptoms: loss of appetite Treatments Prior to Arrival: none Related Data Home Medications Medication Instructions Recorded Confirmed No Known Home Medications 12/18/18 12/20/18 Allergies Allergy/AdvReac Type Severity Reaction Status Date / Time No Known Drug Allergies Allergy Verified 03/16/19 07:25 Review of Systems Constitutional Constitutional: Denies chills, Denies fatigue, Denies fever(s), Denies frequent falls, Denies lethargy and Denies weakness Eyes Eyes: Denies change in vision, Denies eye discharge, Denies irritation and Denies loss of vision ENT Ears, Nose, Mouth, and Throat: Denies change in voice, Denies dizziness, Denies neck pain, Denies sore throat and Denies throat swelling Cardiovascular Cardiovascular: Denies chest pain, Denies irregular heart rhythm, Denies lightheadedness, Denies palpitations, Denies dyspnea, Denies dyspnea on exertion and Denies orthopnea Respiratory Respiratory: Denies cough, Denies dyspnea, Denies dyspnea on exertion and Denies wheezing Gastrointestinal Gastrointestinal: Reports abdominal pain, Denies change in bowel habits, Denies diarrhea, Denies nausea and Denies vomiting Genitourinary Genitourinary: Denies hematuria, Denies flank pain, Denies urinary incontinence and Denies urinary urgency Musculoskeletal Musculoskeletal: Denies back pain, Denies muscle weakness, Denies neck pain, Denies numbness and Denies tingling Integumentary/Breasts Skin/Breast: Denies pruritus, Denies erythema, Denies rash and Denies wounds Neurologic Neurologic: Denies behavioral changes, Denies confusion, Denies dizziness, Denies frequent falls, Denies loss of vision, Denies numbness, Denies tingling and Denies weakness Psychiatric Psychiatric: Denies anxiety, Denies behavioral changes, Denies confusion, Denies depression, Denies homicidal ideation and Denies suicidal ideation Endocrine Endocrine: Denies fatigue, Denies flushing and Denies palpitations Hematologic/Lymphatic Hematologic/Lymphatic: Denies easy bruising Allergic/Immunologic Allergic/Immunologic: Denies urticaria, Denies throat swelling and Denies wheezing [facility] Surgical History History of third molar tooth extraction History of tonsillectomy Status post cholecystectomy Social History Smoking Status: Never smoker second hand exposure: No alcohol intake: current substance use type: does not use Social History Smoking Status: Never smoker second hand exposure: No alcohol intake: current substance use type: does not use Exam Narrative Exam Narrative: GENERAL: [58] year old patient appears younger than stated age. Well-nourished, well-developed patient, in mild distress. HEAD: Atraumatic. Normocephalic. EYES: Pupils equal round and reactive. Extraocular motions intact. No scleral icterus. No injection or drainage. ENT: Nose without bleeding, purulent drainage. Throat without erythema, tonsillar hypertrophy or exudate. Airway patent. NECK: Trachea midline. Non tender CARDIOVASCULAR: Regular rate and rhythm without murmurs, gallops, or rubs. RESPIRATORY: Clear to auscultation. Breath sounds equal bilaterally. No wheezes, rales, or rhonchi. GASTROINTESTINAL: Abdomen soft, non-tender, nondistended. RECTAL: Performed with patient's permission, female nursing rail transportation operator at the bedside. Nontender, no fissure or hemorrhoid noted. Heme positive EXTREMITIES: No edema or joint tenderness. BACK: Nontender without deformity or crepitance. No flank tenderness. NEURO: AOx3. SKIN: No rash or erythema of visible areas Initial Vital Signs Initial Vital Signs: Vital Signs Temperature 97.8 F 03/16/19 07:15 Pulse Rate 76 03/16/19 07:15 Respiratory Rate 18 03/16/19 07:15 Blood Pressure 150/79 H 03/16/19 07:15 Pulse Oximetry 98 03/16/19 07:15 Course Orders Ordered: ED Orders 03/16/19 07:24 XR acute abdomen series Stat Urinalysis and Microscopic Stat 03/16/19 07:35 Complete Blood Count AUTO DIFF Stat Comprehensive Metabolic Panel Stat Partial Thromboplastin Time Stat Prothrombin Time INR Stat Vital Signs Vital signs: Vital Signs - 8 hr 03/16/19 07:15 03/16/19 08:19 Temperature 97.8 F Pulse Rate 76 71 Respiratory Rate 18 21 Blood Pressure 150/79 H Blood Pressure [Left Arm] 136/62 Pulse Oximetry 98 97 MDM - GI Bleed Lab Data Result diagrams: 03/16/19 07:35 03/16/19 07:35 Labs: Lab Results 03/16/19 03/16/19 03/16/19 Range/Units 07:35 07:35 07:35 WBC 5.2 (4.5-11.0) X10^3/uL RBC 4.56 (4.0-5.2) X10^6/uL Hgb 13.6 (12.0-16.0) g/dL Hct 39.5 (36-46) % MCV 86.6 (80-100) fL MCH 29.8 (26-34) PG MCHC 34.4 (30-36) % RDW 13.1 (11.6-14.8) % Plt Count 263 (150-400) X10^3/uL Neut % (Auto) 58.6 (50-75) % Lymph % (Auto) 31.5 (25-40) % Bollinger % (Auto) 7.0 (3-14) % Eos % (Auto) 2.1 (2-4) % Baso % (Auto) 0.8 (0-2) % Neut # (Auto) 3000 (6072-9893) /uL Lymph # (Auto) 1600 (3704-7878) /uL Bollinger # (Auto) 400 (0-900) /uL Eos # (Auto) 100 (0-450) /uL Baso # (Auto) 0 (0-100) /uL PT 11.3 (10.1-12.7) SECONDS INR 1.0 (0.9-1.3) APTT 35 (26.4-36.2) SECONDS Sodium 142 (137-145) mmol/L Potassium 4.3 (3.4-5.1) mmol/L Chloride 102 (98-107) mmol/L Carbon Dioxide 32 (22-32) mmol/L BUN 12 (7-17) mg/dL Creatinine 0.60 (0.52-1.04) mg/dL Estimated GFR > 60.0 (>60) mL/min BUN/Creatinine Ratio 20.0 (6-22) Glucose 103 H (70-100) mg/dL Calcium 9.7 (8.4-10.2) mg/dL Total Bilirubin 1.5 H (0.2-1.3) mg/dL AST 33 (14-36) IU/L ALT 57 H (9-52) IU/L Alkaline Phosphatase 74 (38-126) U/L Total Protein 7.5 (6.3-8.2) g/dL Albumin 4.6 (3.5-5.0) g/dL Globulin 2.9 (1.7-4.1) g/dL Albumin/Globulin Ratio 1.6 (1.0-2.8) Imaging Data Abdominal x-ray: Radiologist's impression: Chart Viewer Diagnostics DATE TYPE STATUS AUTHOR Hx 03/16/19 07:24 Oz Chamorro 12/08/18 09:10 Delfin Torres 11/08/18 00:00 Mayra Cespedes 06/04/18 23:35 Radhika Mejia Linda D 58, F0 1960 [facility], [facility] ED R10 154.94cm 45.586kg BMI: 19.0kg/m? GI Bleed Search Chart No Data to Display ONSET Today 08:19 Nivia Ness 58 F [address] [address] XRay Report Signed Patient: Nivia Ness DMR#: [id number] : 2Acct:[id number] Age/Sex: 58 / FDate of Service: 03/16/19 Loc: ED Accession Number: [id number] Procedure: XR acute abdomen series Ordering Provider: Gilson Rodriguez D.O. PROCEDURE: XR ACUTE ABDOMEN SERIES INDICATIONS: Abdominal pain, loss of appetite, weight loss TECHNIQUE: One view chest and two views of the abdomen were acquired. COMPARISON: [facility], , ABDOMEN COMPLETE, 03/16/2017, 8:19. FINDINGS: Surgical changes and devices: Cholecystectomy clips are seen. Chest: Lungs are clear. Heart size is normal. No pleural effusions. No pneumoperitoneum. Abdomen: Bowel gas pattern is normal. There is a moderate amount of stool seen within the colon. No suspicious calcifications. Visualized solid organ contours appear normal. Bones: No suspicious bony lesions. Age-appropriate bony degenerative changes are seen. IMPRESSION: There is a moderate amount of stool seen within the colon. Please correlate with an underlying history of constipation. Prior cholecystectomy. Dictated by: Oz Chamorro M.D. on 03/16/2019 at 8:10 Approved by: Oz Chamorro M.D. on 03/16/2019 at 8:11 MDM Narrative Medical decision making narrative: 58-year-old female with multiple weeks of complaints including decreased appetite, episodic abdominal discomfort and episodes of bright red blood. Her labs are very reassuring as is her physical exam. No indication for admission or emergent intervention. Return precautions given, questions answered to the patient's apparent satisfaction. Discharge Plan Departure Patient Disposition: Home Clinical Impression: Bright red rectal bleeding Instructions: Gastrointestinal Bleeding Activity Restrictions/Additional Instructions: 1. Drink plenty of fluids with frequent small sips. 2. For the next 24 hours a clear liquid diet is advised. After that please employ a brat diet which would include bananas, rice, apples, toast. 3. Please take medications as directed. 4. Please follow-up with your doctor in the next 1-2 days. Call the office for an appointment. 5. Please return to the emergency Department for any worsening or persistent symptoms, such as increasing pain or fever. Prescriptions: No Action No Known Home Medications RF: 0 Referrals: Didier Mathew ARNP [Primary Care Provider] -
--- NOTE | 2019-03-16 07:24 | DI.RAD.S_ITS ---
PROCEDURE: XR ACUTE ABDOMEN SERIES INDICATIONS: Abdominal pain, loss of appetite, weight loss TECHNIQUE: One view chest and two views of the abdomen were acquired. COMPARISON: [facility], , ABDOMEN COMPLETE, 03/16/2017, 8:19. FINDINGS: Surgical changes and devices: Cholecystectomy clips are seen. Chest: Lungs are clear. Heart size is normal. No pleural effusions. No pneumoperitoneum. Abdomen: Bowel gas pattern is normal. There is a moderate amount of stool seen within the colon. No suspicious calcifications. Visualized solid organ contours appear normal. Bones: No suspicious bony lesions. Age-appropriate bony degenerative changes are seen. IMPRESSION: There is a moderate amount of stool seen within the colon. Please correlate with an underlying history of constipation. Prior cholecystectomy. Dictated by: Oz Chamorro M.D. on 03/16/2019 at 8:10 Approved by: Oz Chamorro M.D. on 03/16/2019 at 8:11
[2019-03-16 07:44] LABS: Add Manual Diff / Slide Review NO; Basophils Absolute Auto 0 /uL (0-100); Basophils Percent Auto 0.8 % (0-2); Eosinophils Absolute Auto 100 /uL (0-450); Eosinophils Percent Auto 2.1 % (2-4); Hematocrit 39.5 % (36-46); Hemoglobin 13.6 g/dL (12.0-16.0); Lymphocytes Absolute Auto 1600 /uL (1100-4500); Lymphocytes Percent Auto 31.5 % (25-40); Mean Corpuscular HGB Conc 34.4 % (30-36); Mean Corpuscular Hemoglobin 29.8 PG (26-34); Mean Corpuscular Volume 86.6 fL (80-100); Monocytes Absolute Auto 400 /uL (0-900); Neutrophils Absolute Auto 3000 /uL (1500-7000); Neutrophils Percent Auto 58.6 % (50-75); Platelet Count 263 X10^3/uL (150-400); Red Blood Cell Count 4.56 X10^6/uL (4.0-5.2); Red Cell Distribution Width 13.1 % (11.6-14.8); White Blood Cell Count 5.2 X10^3/uL (4.5-11.0)
[2019-03-16 07:49] LABS: Prothrombin Time 11.3 SECONDS (10.1-12.7)
[2019-03-16 07:52] LABS: PTT Partial Thromboplastin Tim 35 SECONDS (26.4-36.2)
[2019-03-16 07:54] LABS: Alanine Aminotransferase 57 IU/L (9-52); Albumin 4.6 g/dL (3.5-5.0); Albumin Globulin Ratio 1.6 (1.0-2.8); Alkaline Phosphatase 74 U/L (38-126); Aspartate Aminotransferase 33 IU/L (14-36); Bilirubin Total 1.5 mg/dL (0.2-1.3); Blood Urea Nitrogen 12 mg/dL (7-17); Calcium 9.7 mg/dL (8.4-10.2); Carbon Dioxide 32 mmol/L (22-32); Chloride 102 mmol/L (98-107); Estimated Glomerular Filt Rate > 60.0 mL/min (>60); Globulin 2.9 g/dL (1.7-4.1); Glucose 103 mg/dL (70-100); HEMOLYSIS < 15 (0-50); Potassium 4.3 mmol/L (3.4-5.1); Sodium 142 mmol/L (137-145); Total Protein 7.5 g/dL (6.3-8.2)
[2019-03-16 08:19] VITALS: BP 136/62; PULSE 71; RESP 21; O2SAT 97
== END 2019-03-16 08:58 | disposition home or self-care (01) ==
PROVIDERS: Emergency Provider Emergency Medicine; PCP Nurse Practitioner Family
DX: K62.5 Hemorrhage of anus and rectum (principal); R10.9 Unspecified abdominal pain; R63.4 Abnormal weight loss
CPT/HCPCS: 36415; 74022; 80053; 85025; 85610; 85730; 93041; 99283; 99285

== ENCOUNTER → 2019-04-10 15:38 | Outpatient (CLI) | payer OTHER, SELFPAY | PROVIDERS: PCP Nurse Practitioner Family | DX: Z23 Encounter for immunization (principal) | CPT/HCPCS: 90471; 90686 ==

== ENCOUNTER 2019-08-28 06:17 | Day surgery (SDC) | payer OTHER, SELFPAY ==
[2019-08-28] MEDS: PROPARACAINE 0.5% OPHTH SOL 2 DROPS EYE-OP (07:06)
[2019-08-28] MEDS: CATARACT EYE COMPOUND (10 DROPS/SYRINGE) 3 DROPS EYE-OP (07:07)
[2019-08-28 07:09] VITALS: BP 137/77; PULSE 58; RESP 16; TEMP 36.6; O2SAT 100; BMI 18.3
--- NOTE | 2019-08-28 07:43 | PM.PREOP ---
Pre-operative Note Interval Note History & Physical reviewed/Exam performed by Physician: Yes Changes to H&P: No
--- NOTE | 2019-08-28 07:43 | PM.OP.1 ---
Operative Date/Time/Diagnoses Pre-op diagnosis: Nuclear cataract right eye Procedure & Clinicians Procedure: Cataract Surgery Same procedure as scheduled: Yes Surgeon: Allen Kim Anesthesia Type: MAC +/- and Sedation Operative Notes Procedure in detail: Patient brought to the operating suite. Tetracaine drops placed in the right eye. Patient was prepped and draped in sterile manner. Wire lid speculum was placed in the eye. Betadine drops were placed on the eye. This was irrigated. Lidocaine jelly was placed on the eye. A paracentesis port was created with a side-port blade. 0.1 mL 1% preservative free lidocaine was injected into the anterior chamber. The anterior chamber was deepened with viscoelastic. 2.6 mm keratome was used to create a temporal clear corneal incision. Cystotome and Utrata forceps were used to create continuous tear capsulorrhexis. Balanced salt solution was used to hydro dissect the nucleus. The phacoemulsification handpiece was inserted and the nucleus was removed using the stop and chop technique. The irrigation aspiration handpiece was inserted and the remaining cortex was removed. Anterior chamber was deepened with viscoelastic. An Roy ZCB00 intraocular lens with a power of 24.0 was injected into the capsular bag. Irrigation aspiration handpiece was inserted and the remaining viscoelastic was removed. Incision was hydrated with balanced salt solution and found to be leak free with pressure with Weck-Janneth sponges. 0.1 mL Vigamox injected anterior chamber. 0.3 mL Kenalog 10 mg was injected subconjunctivally. Lid speculum was removed. The patient left the operating room in excellent condition. Complications: none Post-operative Condition: stable Disposition: same day surgery
[2019-08-28] MEDS: PHENYLEPHRINE/LIDOCAINE VIAL (OR) 0.2 ML EYE-OP (07:56)
[2019-08-28] MEDS: CHONDROIDTIN/SOD HYALURONATE 1.05 ML SYRINGE INTRAOCULA (07:57)
[2019-08-28] MEDS: TRIAMCINOLONE 50 MG/5 ML VIAL INJ (07:57)
[2019-08-28] MEDS: MOXIFLOXACIN INJ 5 MG/ML VIAL EYE-OP (07:57)
[2019-08-28] MEDS: LIDOCAINE JELLY 2% 5 ML 1 APPLIC TOP (07:57)
[2019-08-28] MEDS: TETRACAINE 0.5% OPHTH DROPS 4 ML 2 DROPS EYE-OP (07:57)
[2019-08-28] MEDS: BALANCED SALT IRRIG SOLN NO.2 500 ML, EPINEPHrine 1 MG IRR (07:58)
== END 2019-08-28 08:20 | disposition home or self-care (01) ==
PROVIDERS: PCP Nurse Practitioner Family; Referring Provider Ophthalmology; Visit Provider Ophthalmology
PROC: (CPT 66984; principal; 2019-08-28 07:45)
DX: H25.11 Age-related nuclear cataract, right eye (principal)
CPT/HCPCS: 66984; J0171; J3301

== ENCOUNTER → 2020-04-04 16:39 | Outpatient (CLI) | payer OTHER, SELFPAY ==
--- NOTE | 2020-04-04 16:42 | DI.MG.S_ITS ---
BILATERAL DIGITAL SCREENING MAMMOGRAM 3D/2D WITH CAD: 04/04/2020 CLINICAL: Routine screening. Family history of breast cancer. Comparison is made to exams dated: 11/08/2018 mammogram, 08/01/2017 mammogram - [facility], and 03/31/2015 mammogram - [facility]. The tissue of both breasts is heterogeneously dense. This may lower the sensitivity of mammography. Current study was also evaluated with a Computer Aided Detection (CAD) system. There are benign calcifications in both breasts. No significant masses, calcifications, or other findings are seen in either breast. There has been no significant interval change. IMPRESSION: BENIGN There is no mammographic evidence of malignancy. A 1 year screening mammogram is recommended. This exam was interpreted at Station ID: [id number]. NOTE: For mammograms, a report in lay terms will be sent to the patient. Approximately 15% of breast malignancies will not be visualized mammographically. In the management of a palpable breast mass, a negative mammogram must not discourage biopsy of a clinically suspicious lesion. Electronically Signed By: Harjit miller/mariano:04/04/2020 18:34:05 letter sent: Normal Exam ACR BI-RADS Category 2: Benign Finding(s) 3342F
== END ==
PROVIDERS: PCP Nurse Practitioner Family; Referring Provider Nurse Practitioner Family; Visit Provider Nurse Practitioner Family
DX: Z12.31 Encounter for screening mammogram for malignant neoplasm of breast (principal); Z80.3 Family history of malignant neoplasm of breast
CPT/HCPCS: 77063; 77067

== ENCOUNTER → 2020-04-07 06:56 | Outpatient (CLI) | payer OTHER, SELFPAY ==
[2020-04-07 08:16] LABS: Hematocrit 39.5 % (36-46); Hemoglobin 13.3 g/dL (12.0-16.0); Mean Corpuscular HGB Conc 33.8 % (30-36); Mean Corpuscular Hemoglobin 29.7 PG (26-34); Mean Corpuscular Volume 88.1 fL (80-100); Platelet Count 244 X10^3/uL (150-400); Red Blood Cell Count 4.49 X10^6/uL (4.0-5.2); Red Cell Distribution Width 13.2 % (11.6-14.8); White Blood Cell Count 5.3 X10^3/uL (4.5-11.0)
[2020-04-07 08:30] LABS: Alanine Aminotransferase 62 IU/L (<35); Albumin 4.4 g/dL (3.5-5.0); Albumin Globulin Ratio 1.4 (1.0-2.8); Alkaline Phosphatase 66 U/L (38-126); Aspartate Aminotransferase 49 IU/L (14-36); BUN Creatinine Ratio 22.4 (6-22); Bilirubin Total 1.5 mg/dL (0.2-1.3); Blood Urea Nitrogen 17 mg/dL (7-17); Calcium 10.2 mg/dL (8.4-10.2); Carbon Dioxide 36 mmol/L (22-32); Chloride 102 mmol/L (98-107); Cholesterol 216 mg/dL (140-199); Estimated Glomerular Filt Rate > 60.0 mL/min (>60); Globulin 3.2 g/dL (1.7-4.1); Glucose 101 mg/dL (70-100); HDL Cholesterol 77 mg/dL (40-60); HEMOLYSIS < 15 (0-50); LDL Cholesterol Calculated 108 mg/dL (<100); Potassium 3.9 mmol/L (3.4-5.1); Sodium 141 mmol/L (137-145); Total Protein 7.6 g/dL (6.3-8.2); Triglycerides 157 mg/dL (35-150)
== END ==
PROVIDERS: PCP Nurse Practitioner Family; Referring Provider Nurse Practitioner Family; Visit Provider Nurse Practitioner Family
DX: Z00.00 Encounter for general adult medical examination without abnormal findings (principal); E80.6 Other disorders of bilirubin metabolism; Z13.6 Encounter for screening for cardiovascular disorders
CPT/HCPCS: 36415; 80053; 80061; 85027

== ENCOUNTER → 2020-10-31 06:53 | Outpatient (CLI) | payer OTHER, SELFPAY ==
[2020-10-31 08:28] LABS: Hematocrit 39.8 % (36-46); Hemoglobin 13.5 g/dL (12.0-16.0); Mean Corpuscular HGB Conc 33.8 % (30-36); Mean Corpuscular Hemoglobin 30.3 PG (26-34); Mean Corpuscular Volume 89.6 fL (80-100); Platelet Count 249 X10^3/uL (150-400); Red Blood Cell Count 4.45 X10^6/uL (4.0-5.2); Red Cell Distribution Width 13.5 % (11.6-14.8); White Blood Cell Count 6.2 X10^3/uL (4.5-11.0)
[2020-10-31 08:32] LABS: Alanine Aminotransferase 65 IU/L (<35); Albumin 4.5 g/dL (3.5-5.0); Albumin Globulin Ratio 1.5 (1.0-2.8); Alkaline Phosphatase 66 U/L (38-126); Aspartate Aminotransferase 42 IU/L (14-36); BUN Creatinine Ratio 27.1 (6-22); Bilirubin Total 0.9 mg/dL (0.2-1.3); Blood Urea Nitrogen 19 mg/dL (7-17); Calcium 10.2 mg/dL (8.4-10.2); Carbon Dioxide 30 mmol/L (22-32); Chloride 103 mmol/L (98-107); Estimated Glomerular Filt Rate > 60.0 mL/min (>60); Globulin 3.1 g/dL (1.7-4.1); Glucose 102 mg/dL (70-100); HEMOLYSIS < 15 (0-50); Potassium 3.9 mmol/L (3.4-5.1); Sodium 140 mmol/L (137-145); Total Protein 7.6 g/dL (6.3-8.2)
== END ==
PROVIDERS: PCP Nurse Practitioner Family; Referring Provider Nurse Practitioner Family; Visit Provider Nurse Practitioner Family
DX: E80.6 Other disorders of bilirubin metabolism (principal); R74.8 Abnormal levels of other serum enzymes
CPT/HCPCS: 36415; 80053; 85027

== ENCOUNTER → 2021-04-01 06:59 | Outpatient (CLI) | payer OTHER, SELFPAY ==
[2021-04-01 08:22] LABS: Alanine Aminotransferase 43 IU/L (<35); Albumin 4.6 g/dL (3.5-5.0); Albumin Globulin Ratio 1.7 (1.0-2.8); Alkaline Phosphatase 61 U/L (38-126); Aspartate Aminotransferase 45 IU/L (14-36); BUN Creatinine Ratio 27.8 (6-22); Bilirubin Total 1.1 mg/dL (0.2-1.3); Blood Urea Nitrogen 20 mg/dL (7-17); Calcium 10.1 mg/dL (8.4-10.2); Carbon Dioxide 34 mmol/L (22-32); Chloride 100 mmol/L (98-107); Estimated Glomerular Filt Rate > 60.0 mL/min (>60); Globulin 2.7 g/dL (1.7-4.1); Glucose 96 mg/dL (70-100); HEMOLYSIS < 15 (0-50); Potassium 4.4 mmol/L (3.4-5.1); Sodium 139 mmol/L (137-145); Total Protein 7.3 g/dL (6.3-8.2)
[2021-04-01 08:49] LABS: TSH w/ Reflex to FT4 3.08 uIU/mL (0.47-4.68)
== END ==
PROVIDERS: PCP Nurse Practitioner Family; Referring Provider Nurse Practitioner Family; Visit Provider Nurse Practitioner Family
DX: Z00.00 Encounter for general adult medical examination without abnormal findings (principal); E80.6 Other disorders of bilirubin metabolism; R74.8 Abnormal levels of other serum enzymes
CPT/HCPCS: 36415; 80053; 84443

== ENCOUNTER → 2021-05-28 16:48 | Outpatient (CLI) | payer OTHER, SELFPAY ==
--- NOTE | 2021-05-28 16:51 | DI.MG.S_ITS ---
BILATERAL DIGITAL SCREENING MAMMOGRAM 3D/2D WITH CAD: 05/28/2021 CLINICAL: Routine screening. Family history of breast cancer. Comparison is made to exams dated: 04/04/2020 mammogram, 11/08/2018 mammogram, 08/01/2017 mammogram - , and 03/04/2014 mammogram - [facility]. The tissue of both breasts is heterogeneously dense. This may lower the sensitivity of mammography. Current study was also evaluated with a Computer Aided Detection (CAD) system. There are benign calcifications in both breasts. No significant masses, calcifications, or other findings are seen in either breast. There has been no significant interval change. IMPRESSION: BENIGN There is no mammographic evidence of malignancy. A 1 year screening mammogram is recommended. This exam was interpreted at Station ID: [id number]. NOTE: For mammograms, a report in lay terms will be sent to the patient. Approximately 15% of breast malignancies will not be visualized mammographically. In the management of a palpable breast mass, a negative mammogram must not discourage biopsy of a clinically suspicious lesion. Electronically Signed By: Harjit miller/mariano:05/29/2021 07:14:55 letter sent: Normal Exam ACR BI-RADS Category 2: Benign Finding(s) 3342F
== END ==
PROVIDERS: PCP Nurse Practitioner Family; Referring Provider Nurse Practitioner Family; Visit Provider Nurse Practitioner Family
DX: Z12.31 Encounter for screening mammogram for malignant neoplasm of breast (principal); Z80.3 Family history of malignant neoplasm of breast
CPT/HCPCS: 77063; 77067

== ENCOUNTER → 2021-07-14 11:11 | Outpatient (CLI) | payer OTHER, SELFPAY ==
[2021-07-14 13:21] LABS: COVID19 -Nasal RAPID POSITIVE (Negative)
== END ==
PROVIDERS: PCP Nurse Practitioner Family; Visit Provider Physician Assistant
DX: U07.1 COVID-19 (principal); J02.9 Acute pharyngitis, unspecified; R05.9 Cough, unspecified; R09.81 Nasal congestion; Z20.822 Contact with and (suspected) exposure to COVID-19
CPT/HCPCS: 87635

== ENCOUNTER → 2022-07-24 14:23 | Outpatient (CLI) | payer OTHER, SELFPAY ==
--- NOTE | 2022-07-24 14:26 | DI.MG.S_ITS ---
BILATERAL DIGITAL SCREENING MAMMOGRAM 3D/2D WITH CAD: 07/24/2022 CLINICAL: Routine screening. Family history of breast cancer. Comparison is made to exams dated: 05/28/2021 mammogram, 04/04/2020 mammogram, and 11/08/2018 mammogram - [facility]. Both breasts are heterogeneously dense, which may obscure small masses (category c / 51-75% glandular tissue). Current study was also evaluated with a Computer Aided Detection (CAD) system. There are benign calcifications in the left breast. No significant masses, calcifications, or other findings are seen in either breast. There has been no significant interval change. IMPRESSION: BENIGN There is no mammographic evidence of malignancy. A 1 year screening mammogram is recommended. This exam was interpreted at Station ID: [id number]. NOTE: For mammograms, a report in lay terms will be sent to the patient. Approximately 15% of breast malignancies will not be visualized mammographically. In the management of a palpable breast mass, a negative mammogram must not discourage biopsy of a clinically suspicious lesion. Electronically Signed By: Jose Mills M.D. acr/penrad:07/26/2022 08:31:37 letter sent: Normal Exam ACR BI-RADS Category 2: Benign Finding(s) 3342F
== END ==
PROVIDERS: PCP Nurse Practitioner Family; Referring Provider Nurse Practitioner Family; Visit Provider Nurse Practitioner Family
DX: Z12.31 Encounter for screening mammogram for malignant neoplasm of breast (principal); Z80.3 Family history of malignant neoplasm of breast
CPT/HCPCS: 77063; 77067